=== PATIENT | male | born 1950 | race Caucasian/White ===

== ENCOUNTER 2016-12-26 07:16 | Observation (INO) | payer OTHER ==
[2016-12-26] MEDS ORDERED: NS 1,000 ML IV ONE (07:20)
--- NOTE | 2016-12-26 07:51 | CPEKG ---
Heart Rate: 116 RR Interval: 517 QRSD Interval: 112 QT Interval: 384 QTC Interval: 534 QRS [place]: 0 T Wave [place]: 74 EKG Severity - ABNORMAL ECG - EKG Impression: Atrial flutter EKG Impression: NONSPECIFIC INTRAVENTRICULAR CONDUCTION DELAY EKG Impression: PROBABLE INFERIOR INFARCT, AGE INDETERMINATE Electronically Signed By: Dax Matos 26-Dec-2016 08:41:28
[2016-12-26 08:02] LABS: ADD DIFF? NO; ADD MORPH? NO; ADD SCAN? NO; ATYPICAL LYMPHOCYTE FLAG 0 (0-99); FRAGMENT RBC FLAG 0 (0-99); HEMATOCRIT 47.1 % (40.0-51.0); HEMOGLOBIN 15.2 g/dL (13.7-17.5); LEFT SHIFT FLG 0 (0-99); LIPEMIA HEMOLYSIS FLAG 80 (0-99); MEAN CELL HEMOGLOBIN 27.5 pg (27.9-34.1); MEAN CELL HEMOGLOBIN CONCENTR. 32.3 g/dL (32.4-36.7); MEAN CELL VOLUME 85.2 fL (81.5-99.8); MEAN PLATELET VOLUME 9.4 fL (8.7-11.7); PLATELET CLUMPS FLAG 10 (0-99); PLATELET COUNT 134 10^3/uL (150-400); RED BLOOD CELL COUNT 5.53 10^6/uL (4.40-6.38); RED CELL DISTRIBUTION WIDTH 18.2 % (11.5-15.2)
[2016-12-26] MEDS ORDERED: HEPARIN 10,000 UNIT/10 ML MDV ONE ×2 (08:07→09:17)
[2016-12-26] MEDS ORDERED: LIDOCAINE 1% 30 ML SDV ONE (08:07)
[2016-12-26] MEDS ORDERED: ISOPROTERENOL HCL 0.2 MG/ML 5ML AMP ONE (08:07)
[2016-12-26] MEDS ORDERED: BUPIVACAINE 0.5% 30 ML SDV ONE (08:07)
[2016-12-26 08:12] LABS: APTT 31.4 SEC (23.0-38.0); INR 1.33 (0.83-1.16); PROTIME(PATIENT) 16.5 SEC (12.0-15.0)
[2016-12-26 08:17] LABS: ANION GAP 6 mEq/L (8-16); CALCIUM 8.7 mg/dL (8.5-10.4); CARBON DIOXIDE 32 mEq/l (22-31); CHLORIDE 101 mEq/L (97-110); CREATININE 1.1 mg/dL (0.7-1.3); GLOMERULAR FILTRATION RATE > 60; GLUCOSE 131 mg/dL (70-100); MAGNESIUM 1.8 mg/dL (1.6-2.3); POTASSIUM 3.5 mEq/L (3.5-5.2); SODIUM 139 mEq/L (134-144)
[2016-12-26] MEDS ORDERED: MIDAZOLAM 2 MG/2 ML VIAL ONE (08:30)
[2016-12-26] MEDS ORDERED: fentaNYL 100 MCG/2 ML INJ ONE (08:49)
[2016-12-26] MEDS ORDERED: ROCURONIUM 50 MG/5 ML VIAL ONE ×2 (08:49→10:00)
[2016-12-26] MEDS ORDERED: ONDANSETRON 4 MG/2 ML VIAL ONE ×2 (08:49→11:16)
[2016-12-26] MEDS ORDERED: PROPOFOL/EMULSION 500 MG/50 ML BOTTLE IV ONE ×2 (08:49→09:51)
[2016-12-26] MEDS ORDERED: DEXAMETHASONE 4 MG/ML VIAL ONE (08:49)
[2016-12-26] MEDS ORDERED: PHENYLEPHRINE HCL 100 MCG/ML SYR ONE ×2 (09:16→09:53)
[2016-12-26] MEDS ORDERED: HEPARIN/DEXTROSE 25,000 UNIT/500 ML BAG IV ONE (09:17)
[2016-12-26] MEDS ORDERED: IOPAMIDOL (ISOVUE-300) 50 ML VIAL IV ONE (09:32)
[2016-12-26] MEDS ORDERED: PHENYLEPHRINE 10 MG/ML SDV ONE (09:45)
[2016-12-26] MEDS ORDERED: SUGAMMADEX SODIUM 200 MG/2 ML VIAL IVP ONE ×2 (10:40→10:49)
[2016-12-26] MEDS ORDERED: ONDANSETRON 4 MG/2 ML VIAL IVP PRN (10:54)
[2016-12-26] MEDS ORDERED: ACETAMINOPHEN 325 MG TAB PO PRN (10:54)
[2016-12-26] MEDS ORDERED: OXYCODONE/APAP 5/325 TAB PO PRN (10:54)
[2016-12-26] MEDS ORDERED: NON-FORMULARY NEW DRUG (Eszopiclone [Lunesta] 3 MG) PO PRN (10:56)
[2016-12-26] MEDS ORDERED: METHOCARBAMOL 500 MG TAB PO PRN (10:56)
[2016-12-26] MEDS ORDERED: SIMETHICONE 80 MG TAB CHEW PO PRN (10:56)
[2016-12-26] MEDS ORDERED: METOCLOPRAMIDE 5 MG TAB PO PRN (10:56)
--- NOTE | 2016-12-26 11:20 | CPEKG ---
Heart Rate: 82 RR Interval: 732 P-R Interval: 200 QRSD Interval: 116 QT Interval: 440 QTC Interval: 514 P [place]: 59 QRS [place]: 241 T Wave [place]: 101 EKG Severity - ABNORMAL ECG - EKG Impression: SINUS RHYTHM EKG Impression: LEFT ATRIAL ABNORMALITY EKG Impression: LAD, CONSIDER LEFT ANTERIOR FASCICULAR BLOCK Electronically Signed By: Chloe Parish 26-Dec-2016 12:47:31
[2016-12-26] MEDS ORDERED: OXYCODONE/APAP 5/325 TAB ONE (11:28)
[2016-12-26 11:45] LABS: ANION GAP 6 mEq/L (8-16); CALCIUM 7.4 mg/dL (8.5-10.4); CARBON DIOXIDE 31 mEq/l (22-31); CHLORIDE 103 mEq/L (97-110); CREATININE 1.1 mg/dL (0.7-1.3); GLOMERULAR FILTRATION RATE > 60; GLUCOSE 163 mg/dL (70-100); MAGNESIUM 1.6 mg/dL (1.6-2.3); POTASSIUM 3.4 mEq/L (3.5-5.2); SODIUM 140 mEq/L (134-144)
--- NOTE | 2016-12-26 12:55 | EPPROC ---
Electrophysiology Procedure Note: ELECTROPHYSIOLOGIC STUDY AND CATHETER MEDIATED ABLATION FOR SUBEUSTACHIAN ISTHMUS DEPENDENT COUNTERCLOCKWISE ATRIAL FLUTTER: INDICATION: Recurrent atrial flutter PROCEDURES PERFORMED: 13374-65 EP evaluation with RA/RV/LA pace/record, with arrhythmia induction 29687-69 EP evaluation with RA/RV pace record, insert/reposition catheter, with arrhythmia induction 62181 SVT ablation 65812 3D mapping Fluoroscopy Catheters & Anesthesia: The patient arrived in the Electrophysiology Laboratory in the fasting state. The right clavicular region, right groin, and left groin area were prepped and draped in the usual sterile manner. Anesthesiologist Dr. Richard Cruz administered general anesthesia. Appropriate non-invasive blood pressure, pulse oximetry and end-tidal CO2 monitoring was established. All catheters were placed percutaneously using the modified Seldinger technique , and advanced into position under fluoroscopic guidance. Pt has a >5 yr old IVC filter. 8Fr sheath was placed in right femoral vein and we were able to advance wire to RA through IVC filter without difficulty. Agilis sheath was placed in RA over the wire. One #7 [place] deflectable catheter with 10 pairs of electrodes (Livewire) was placed via the right subclavian vein into the coronary sinus. Heparin was administered to keep ACT > 250 seconds. On arrival to the Electrophysiology Laboratory the patient was in atrial flutter , CL 260 ms. In preparation for ablation of typical atrial flutter, a high-resolution 3D (3 dimensional) Carto electroanatomical map of the sub-Eustachian isthmus and right atrium was obtained during atrial flutter. A #8 [place] deflectable quadrapolar electrode catheter (2mm-5mm-2mm spacing) with 3.5 mm irrigated tip electrode and location sensor for the Bia mapping system was inserted in the long sheath and advanced to the right atrium. Radiofrequency applications were applied between the tricuspid annulus at 0630 o'clock as seen in the LINDA view and the inferior vena cava. Atrial flutter CL gradually increased to 305 ms before termination of atrial flutter. Further RF applications were delivered. This achieved conduction block across the isthmus. Septal to lateral conduction time 205 ms. Bidirectional block was confirmed. Wide double potentials were seen all along the CT isthmus ablation line. Post ablation, a high-resolution electroanatomical map of the sub-Eustachian isthmus was obtained during pacing of the posterolateral coronary sinus. This confirmed conduction block across the sub-Eustachian isthmus. The catheters were removed. Long sheath was changed to short 11Fr sheath. The patient was transferred to the cardiovascular holding area in stable condition. Vascular access sheaths were removed in the holding area. There were no apparent complications. CONCLUSIONS: 1. Cavotricuspid isthmus dependent counterclockwise atrial flutter. 2. Successful catheter mediated ablation of cavotricuspid isthmus achieving bi -directional conduction block across cavotricuspid isthmus. 3. IVC filter in place. Agilis sheath was placed through this IVC filter. 4. No apparent complications. Patient Problems: Problems Problem Status Diagnosed Atrial fibrillation with rapid ventricular response Acute Epistaxis Acute Hypoxia Acute Lung mass Acute Shortness of breath Acute Tachycardia Acute Weakness Acute
[2016-12-26] MEDS ORDERED: ATROPINE SULFATE 1 MG/10 ML SYR ONE (13:11)
[2016-12-26] MEDS ORDERED: Eszopiclone [Lunesta] 3 MG PO PRN (15:58)
[2016-12-26] MEDS ORDERED: MAGNESIUM SULF 1 GM/DEXTROSE 100 ML IV ONE (16:30)
[2016-12-26] MEDS ORDERED: POTASSIUM CL 20 MEQ TAB PO ONE (16:30)
[2016-12-26] MEDS: oxyCODONE IR 5 MG TAB PO PRN ×2 (18:26→18:38)
[2016-12-26] MEDS: WARFARIN SODIUM 5 MG TAB PO SCH (18:26)
[2016-12-26] MEDS ORDERED: NON-FORMULARY NEW DRUG (Ranitidine Hcl [Ranitidine Hcl] 150 MG) PO SCH (21:00)
[2016-12-26] MEDS: SENNOSIDES/DOCUSATE SODIUM TAB PO SCH (22:11)
[2016-12-26] MEDS: SULFAMETHOX/TMP 800/160 MG 1 TAB PO SCH (22:13)
[2016-12-26] MEDS: FAMOTIDINE 20 MG TAB PO SCH (22:13)
[2016-12-26] MEDS: PROMETHAZINE HCL 25 MG TAB PO PRN (22:20)
[2016-12-27] MEDS: oxyCODONE IR 5 MG TAB PO PRN ×5 (00:10→23:44)
[2016-12-27 05:13] LABS: % IMMATURE GRANULYOCYTES 0.3 % (0.0-1.1); ABSOLUTE IMMATURE GRANULOCYTES 0.03 10^3/uL (0.00-0.10); ADD DIFF? NO; ADD MORPH? NO; ADD SCAN? NO; ATYPICAL LYMPHOCYTE FLAG 0 (0-99); FRAGMENT RBC FLAG 0 (0-99); HEMATOCRIT 41.9 % (40.0-51.0); HEMOGLOBIN 13.2 g/dL (13.7-17.5); LEFT SHIFT FLG 0 (0-99); LIPEMIA HEMOLYSIS FLAG 80 (0-99); MEAN CELL HEMOGLOBIN 27.4 pg (27.9-34.1); MEAN CELL HEMOGLOBIN CONCENTR. 31.5 g/dL (32.4-36.7); MEAN CELL VOLUME 86.9 fL (81.5-99.8); MEAN PLATELET VOLUME 10.9 fL (8.7-11.7); PLATELET CLUMPS FLAG 0 (0-99); PLATELET COUNT 138 10^3/uL (150-400); RED BLOOD CELL COUNT 4.82 10^6/uL (4.40-6.38); RED CELL DISTRIBUTION WIDTH 18.6 % (11.5-15.2)
[2016-12-27 05:25] LABS: INR 1.15 (0.83-1.16); PROTIME(PATIENT) 14.7 SEC (12.0-15.0)
[2016-12-27 05:36] LABS: ANION GAP 6 mEq/L (8-16); CALCIUM 8.1 mg/dL (8.5-10.4); CARBON DIOXIDE 34 mEq/l (22-31); CHLORIDE 97 mEq/L (97-110); CREATININE 0.9 mg/dL (0.7-1.3); GLOMERULAR FILTRATION RATE > 60; GLUCOSE 142 mg/dL (70-100); POTASSIUM 3.4 mEq/L (3.5-5.2); SODIUM 137 mEq/L (134-144)
[2016-12-27] MEDS: PROMETHAZINE HCL 25 MG TAB PO PRN ×4 (05:36→23:44)
[2016-12-27 05:43] LABS: CREATINE KINASE-MB FRACTION 1.94 ng/mL (0-3.19); TROPONIN I 0.532 ng/mL (0-0.034)
[2016-12-27] MEDS ORDERED: TESTOSTERONE TD SCH (09:00)
[2016-12-27] MEDS ORDERED: [UNRECOGNIZED DRUG - REMARK] SC SCH (09:00)
--- NOTE | 2016-12-27 09:18 | CPEKG ---
Heart Rate: 84 RR Interval: 714 P-R Interval: 200 QRSD Interval: 114 QT Interval: 408 QTC Interval: 483 P [place]: 94 QRS [place]: 133 T Wave [place]: 106 EKG Severity - ABNORMAL ECG - EKG Impression: SINUS RHYTHM EKG Impression: LEFT ATRIAL ABNORMALITY EKG Impression: NONSPECIFIC INTRAVENTRICULAR CONDUCTION DELAY Electronically Signed By: Chloe Parish 27-Dec-2016 09:54:23
[2016-12-27] MEDS: FUROSEMIDE 40 MG TAB PO SCH (09:39)
[2016-12-27] MEDS: ENOXAPARIN 100 MG/ML SYR SC SCH ×2 (09:40→20:15)
[2016-12-27] MEDS: buPROPion XL 150 MG TAB PO SCH (09:40)
[2016-12-27] MEDS: FOLIC ACID 1 MG TAB PO SCH (09:40)
[2016-12-27] MEDS: MULTIVITAMINS 1 EACH TAB PO SCH (09:40)
[2016-12-27] MEDS: METOLAZONE 5 MG TAB PO SCH (09:40)
[2016-12-27] MEDS: PANTOPRAZOLE SODIUM 40 MG TAB PO SCH (09:40)
[2016-12-27] MEDS: FAMOTIDINE 20 MG TAB PO SCH ×2 (09:40→20:15)
[2016-12-27] MEDS: POTASSIUM CL 20 MEQ/15 ML UDCUP PO SCH (09:40)
--- NOTE | 2016-12-27 09:52 | ECHO ---
[id number] [id number] + + [address] : : [facility] [address] : : [phone] + + Transesophageal Echocardiographic Report + ---------+ :Name: DAVID WEISS LStudy Date: 12/27/2016 09:32 AM : : Hospital Admission Number: [id number] Shaina silver: 213: :: 1950 Gender: Male Height: 72 i n : :Age: 66 yrs Race: WH Weight: 233 lb : :Reason For Study: Eval LV Fx : : BSA: 2.3 met ers2 : :History: Post Ablation : + ---------+ Left Ventricle The left ventricle is normal in size. There is mild to moderate concentric left ventricular hypertrophy. The left ventricular ejection fraction is normal. There is Doppler evidence for diastolic dysfunction. Sinus rhythm. The left ventricular wall motion is normal. Right Ventricle The right ventricle is normal in size and function. Atria The left atrial size is normal. Right atrial size is normal. Mitral Valve The mitral valve is normal in structure and function. There is no evidence of mitral valve prolapse. There is no mitral valve stenosis. There is no mitral regurgitation noted. Tricuspid Valve Normal tricuspid valve. There is trace to mild tricuspid regurgitation. Right ventricular systolic pressure is normal. Aortic Valve There is a mechanical aortic valve. The gradient is normal for this prosthetic aortic valve. The prosthetic aortic valve appears to open well. Pulmonic Valve The pulmonic valve is normal in structure and function. Vessels The aortic root is normal size. Pericardium There is no pericardial effusion. There is a fat pad seen. Conclusion A 2D transesophageal echocardiogram with color flow Doppler was performed. There is mild to moderate concentric left ventricular hypertrophy. The left ventricular ejection fraction is normal. There is Doppler evidence for diastolic dysfunction. Sinus rhythm The left ventricular wall motion is normal. The right ventricle is normal in size and function. The left atrial size is normal. The mitral valve is normal in structure and function. There is trace to mild tricuspid regurgitation. Right ventricular systolic pressure is normal. There is a mechanical aortic valve. The gradient is normal for this prosthetic aortic valve. The prosthetic aortic valve appears to open well. There is a fat pad seen. There is no pericardial effusion. Final Reading Physician: Dax Mtaos MD electronically signed on 12/27/2016 09:50 AM Ordering Physician: Dax Matos Performed By: Samy Workman, CS
[2016-12-27] MEDS ORDERED: PROTOCOL POTASSIUM 1 DOSE MISC PRN (11:13)
[2016-12-27] MEDS: SENNOSIDES/DOCUSATE SODIUM TAB PO SCH ×2 (11:19→20:15)
[2016-12-27] MEDS: PUMP TD SCH (11:20)
[2016-12-27] MEDS: ANDROGEL 1.62% TD SCH (11:20)
[2016-12-27] MEDS ORDERED: POTASSIUM CL 10 MEQ TAB PO ONE (11:39)
--- NOTE | 2016-12-27 14:20 | PDCARPN ---
Cardiology Progress Note Chief Complaint: s/p a.flutter ablation Assessment/Plan: Assessment/plan: The patient has a history of CAD, mechanical AVR, IVC filter, and atrial arrhythmias. He was elective admitted for a flutter ablation which was preformed by Dr. Matos yesterday. It was uncomplicated but he is now complaining of a mild headache and more nausea than normal. He will be kept one additional day for observation. He will continue Coumadin and Lovenox. 12/27/16 14:17 Subjective: He is complaining of more nausea than normal and mild headache. He denies any CP or SOB. Objective: Vital Signs (8 Hrs) Temp Pulse Resp BP Pulse Ox 12/27/16 11:52 36.8 C 84 19 112/75 95 12/27/16 07:52 36.8 C 84 15 111/70 91 L Intake/Output (24 Hrs) 12/26/16 12/27/16 12/28/16 05:59 05:59 05:59 Intake Total 3050 Output Total 1200 600 Balance 1850 -600 Intake: Oral (ml) 1450 IV Intake (ml) 1600 Output: Urine (ml) 1200 600 Urinal 1200 600 Other: Weight 105.7 kg Intake Quantity Yes Sufficient Result Diagrams: 12/27/16 03:22 12/27/16 03:22 Cardiac Labs: Cardiac Lab Results (72 Hrs) 12/27/16 03:22 CK-MB (CK-2) Fraction 1.94 Troponin I 0.532 H - Physical Exam Constitutional: WDWN Cardiovascular: regular rate and rhythm Respiratory: clear to auscultate bilat, no crackles, no wheezes Gastrointestinal: no tenderness, no masses Skin: no edema, other (groin is clean intact without infection) ICD10 Worksheet Patient Problems: Problems Problem Status Diagnosed Atrial fibrillation with rapid ventricular response Acute Epistaxis Acute Hypoxia Acute Lung mass Acute Shortness of breath Acute Tachycardia Acute Weakness Acute
[2016-12-27] MEDS: WARFARIN SODIUM 5 MG TAB PO SCH (15:56)
[2016-12-27 19:10] LABS: POTASSIUM 3.1 mEq/L (3.5-5.2)
[2016-12-27] MEDS: SULFAMETHOX/TMP 800/160 MG 1 TAB PO SCH (20:15)
[2016-12-28] MEDS ORDERED: POTASSIUM CL 10 MEQ TAB PO ONE ×3 (03:08→10:00)
[2016-12-28 06:22] LABS: POTASSIUM 3.3 mEq/L (3.5-5.2)
[2016-12-28] MEDS: oxyCODONE IR 5 MG TAB PO PRN ×2 (10:05→16:52)
[2016-12-28] MEDS: PROMETHAZINE HCL 25 MG TAB PO PRN ×2 (10:05→16:52)
[2016-12-28] MEDS: ENOXAPARIN 100 MG/ML SYR SC SCH (10:06)
[2016-12-28] MEDS: FOLIC ACID 1 MG TAB PO SCH (10:07)
[2016-12-28] MEDS: FAMOTIDINE 20 MG TAB PO SCH (10:07)
[2016-12-28] MEDS: METOLAZONE 5 MG TAB PO SCH (10:07)
[2016-12-28] MEDS: FUROSEMIDE 40 MG TAB PO SCH (10:07)
[2016-12-28] MEDS: POTASSIUM CL 20 MEQ/15 ML UDCUP PO SCH (10:07)
[2016-12-28] MEDS: MULTIVITAMINS 1 EACH TAB PO SCH (10:07)
[2016-12-28] MEDS: PANTOPRAZOLE SODIUM 40 MG TAB PO SCH (10:07)
[2016-12-28] MEDS: buPROPion XL 150 MG TAB PO SCH (10:08)
[2016-12-28] MEDS: ANDROGEL 1.62% TD SCH (10:31)
[2016-12-28] MEDS: PUMP TD SCH (10:31)
[2016-12-28] MEDS ORDERED: MECLIZINE HCL 25 MG TAB PO PRN (10:34)
[2016-12-28 11:37] LABS: % IMMATURE GRANULYOCYTES 0.4 % (0.0-1.1); ABSOLUTE IMMATURE GRANULOCYTES 0.02 10^3/uL (0.00-0.10); ADD DIFF? NO; ADD MORPH? NO; ADD SCAN? NO; ATYPICAL LYMPHOCYTE FLAG 0 (0-99); FRAGMENT RBC FLAG 0 (0-99); HEMATOCRIT 40.6 % (40.0-51.0); HEMOGLOBIN 12.9 g/dL (13.7-17.5); LEFT SHIFT FLG 0 (0-99); LIPEMIA HEMOLYSIS FLAG 80 (0-99); MEAN CELL HEMOGLOBIN 27.9 pg (27.9-34.1); MEAN CELL HEMOGLOBIN CONCENTR. 31.8 g/dL (32.4-36.7); MEAN CELL VOLUME 87.7 fL (81.5-99.8); MEAN PLATELET VOLUME 10.2 fL (8.7-11.7); PLATELET CLUMPS FLAG 0 (0-99); PLATELET COUNT 105 10^3/uL (150-400); RED BLOOD CELL COUNT 4.63 10^6/uL (4.40-6.38); RED CELL DISTRIBUTION WIDTH 19.2 % (11.5-15.2)
[2016-12-28 12:23] VITALS: BP 127/92; RESP 17; TEMP 97.9
[2016-12-28 12:40] LABS: ANION GAP 8 mEq/L (8-16); CALCIUM 9.1 mg/dL (8.5-10.4); CARBON DIOXIDE 34 mEq/l (22-31); CHLORIDE 94 mEq/L (97-110); GLOMERULAR FILTRATION RATE > 60; GLUCOSE 181 mg/dL (70-100); POTASSIUM 3.7 mEq/L (3.5-5.2); SODIUM 136 mEq/L (134-144)
[2016-12-28] MEDS: SENNOSIDES/DOCUSATE SODIUM TAB PO SCH (12:43)
[2016-12-28 15:24] VITALS: PULSE 93; O2SAT 93
--- NOTE | 2016-12-28 15:35 | PDIAF ---
- Diagnosis Diagnosis: atrial flutter Code Status: Full Code - Medication Management Discharge Medications: Medications to Continue on Transfer Folic Acid [Folic Acid 1 MG (*)] 1 mg PO DAILY 08/03/16 [Last Taken 09/23/16] Furosemide [Lasix 40 MG (*)] 40 mg PO DAILY 08/03/16 [Last Taken 12/25/16] Methocarbamol [Robaxin 500 mg (*)] 500 mg PO BID PRN 08/03/16 [Last Taken ] Multivitamins [Multivitamin (*)] 1 each PO DAILY 08/03/16 [Last Taken 09/23/16] Pantoprazole Sodium [Protonix 40mg (*)] 40 mg PO DAILY 08/03/16 [Last Taken ] Promethazine HCl [Phenergan 25mg (*)] 25 mg PO Q6 PRN 08/03/16 [Last Taken Unknown] Sulfamethox/Tmp 800/160 mg [Bactrim DS] 1 tab PO HS 08/03/16 [Last Taken ] Warfarin Sodium [Coumadin 5MG (*)] 5 mg PO MOTUWEFRSA@16 08/03/16 [Last Taken ] Warfarin Sodium [Coumadin 5MG (*)] 7.5 mg PO SUTH@1600 08/03/16 [Last Taken ] buPROPion XL [Wellbutrin 150mg XL] 150 mg PO DAILY 08/03/16 [Last Taken 12/25/16 ] oxyCODONE IR [Oxycodone Ir (*)] 5 - 10 mg PO Q4 PRN 08/03/16 [Last Taken ] Herbals/Supplements -Info Only 1 ea PO DAILY 09/23/16 [Last Taken Unknown] Metoclopramide [Reglan 5 mg (*)] 5 mg PO ACHS PRN 09/23/16 [Last Taken 09/20/16] Ranitidine HCl 150 mg PO BID 09/23/16 [Last Taken 12/25/16] Sennosides/Docusate Sodium [Senokot-S] 1 - 2 tab PO BID #0 tab 09/28/16 [Last Taken 12/24/16] Simethicone [Mylicon] 80 mg PO QID PRN #0 tab.chew 09/28/16 [Last Taken Unknown] Eszopiclone [Lunesta] 3 mg PO HS PRN 12/26/16 [Last Taken Unknown] Metolazone [Zaroxolyn 5MG (*)] 5 mg PO DAILY 12/26/16 [Last Taken Unknown] TESTOSTERONE [Androgel 1.62% pump] 1 monster TD DAILY 12/26/16 [Last Taken Unknown] Enoxaparin [Lovenox 100 MG (*)] 100 mg SQ 1000,2200 #7 syr 12/27/16 [Last Taken Unknown] Metoprolol Tartrate 12.5 mg PO BID #30 tablet 12/28/16 [Last Taken Unknown] Potassium Chloride Po [Potassium Chloride 20 mg/15 ml (*)] 20 meq PO DAILY #0 udcup 12/28/16 [Last Taken Unknown] Discharge Medications: Refer to the Discharge Home Medication list for PRN reason. PICC Care - Routine: N/A - Orders Services needed: Home Care, Registered Nurse, Physical Therapy Home Care Face to Face: I certify that this patient was under my care and that I had the required [id number] encounter meeting the encounter requirements on the discharge day. My findings support the fact that the patient is homebound as defined in CMS Chapter 7 Medicare Benefits Manual 30.1.1, The condition of the patient is such that there exists a normal inability to leave home and consequently, leaving home would require a considerable and taxing effort. Diet Recommendation: cardiac -low fat low salt Diet Texture: Regular Texture Diet - Labs/Radiology PT/INR Date: 01/01/17 - Follow Up Care Current Providers and Referrals: VITA SARGENT [Primary Care Provider] -
[2016-12-28] MEDS ORDERED: WARFARIN SODIUM 5 MG TAB PO SCH (16:00)
--- NOTE | 2016-12-28 18:53 | GDS ---
[f rep st] DISCHARGE SUMMARY DISCHARGE DIAGNOSES: 1. Atrial flutter, status post ablation. 2. History of bicuspid aortic valve, status post [place] mechanical aortic valve replacement. 3. Chronic abdominal discomfort. 4. Chronic headache. HOSPITAL COURSE: For detailed H and P, please see prior dictation. The patient is a 66-year-old mal e with a complicated past medical history. For detailed history, please see prior office notes. Alvinaerika zuñiga, he has a history of a bicuspid aortic valve, status post [place] mechanical AVR with a root gr aft in 2001. 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 Most recently, he has b een diagnosed with paroxysmal atrial flutter and atrial fibrillation. This is associated with fatigu e, shortness of breath, and dizziness. He was having predominantly atrial flutter and therefore, the decision was made to proceed with an EP study and ablation. This was performed by Dr. Dax Matos on December 26, 2016. The procedure was uncomplicated. Unfortunately, he had a prolonged hospitalizati on secondary to complaints of chronic nausea and dizziness. He was monitored on telemetry, remained in normal sinus rhythm with frequent ectopy. He did note that his heart felt better, but he felt wel l worse in other ways. He had slightly worse dizziness and nausea. He did not have any evidence of infection with a normal white blood cell count and remained afebrile throughout his hospitalization. His vitals looked great with a blood pressure of 127/92 the day of discharge. His heart rate was ty pically running in the 70s to 90s. He does have a history of chronic oxygen use, but his oxygen satu rations were remaining greater than 90% on 3 L of oxygen. He did work with Physical Therapy and ambu lated in the halls without a walker. He did need to stop multiple times because he complained of diz ziness. It was recommended he use a walker, which he was not interested in. STUDIES: His echocardiogram revealed mild to moderate left ventricular hypertrophy with normal left ventricular ejection fraction. There was diastolic dysfunction and a mechanical aortic valve was see n. The gradient was normal for the valve. His EKG postablation revealed normal sinus rhythm with no nspecific ST-T wave changes. PHYSICAL EXAMINATION: GENERAL: Patient appears in no acute distress. VITALS: Blood pressure 127/9 2, heart rate 88, oxygen saturation 96% on 3 L, afebrile. LUNGS: Clear to auscultation. No wheezes , rhonchi, or crackles are auscultated. CARDIAC: There is a click consistent with aortic valve with a systolic murmur present. ABDOMEN: Soft, nontender, nondistended. EXTREMITIES: Palpable pulses bilaterally without any evidence of edema. Access for his ablation was obtained through the right gr oin and right axillary region. There is no evidence of hematoma or infection at either site. DISCHARGE MEDICATIONS: His Coumadin has been resumed, but he will need to remain on Lovenox 100 mg b .i.d. until his INR is therapeutic between 2.5 and 3.5. To also continue potassium 20 mEq daily, met oprolol 12.5 mg b.i.d., herbal supplement daily, oxycodone IR 5-10 mg q.4 hours p.r.n., Wellbutrin 1 50 mg daily, Coumadin 5 mg daily with 7.5 mg on Sunday and , AndroGel transdermal daily, Bact rim DS 1 tab at bedtime, Mylicon 80 mg q.i.d. p.r.n., Senokot 1-2 tabs b.i.d., Phenergan 25 mg q.6 p. r.n., Protonix 40 mg daily, multivitamin daily, Zaroxolyn 5 mg daily, Reglan 5 mg p.r.n., Robaxin 500 mg b.i.d., Lasix 40 mg daily, folic acid 1 mg daily, ranitidine 150 mg b.i.d., Lunesta 3 mg at bedti me. PLAN: The patient is status post atrial flutter ablation. His access sites are clean and dry withou t any evidence of infection. He should keep them clean and dry for the next 7 days. He is not to do any physical activity for the next 7 days as well. He has been complaining of nausea and dizziness for the past 18 months to 2 years. He is currently in sinus rhythm with stable vital signs. A cause for his symptoms has not been identified. He will continue followup with his specialist. He has be en ordered home physical therapy and nursing. He is aware that he is to remain on Lovenox until his INR is therapeutic between 2.5 and 3.5. He will have an INR drawn on January 01. He will also fol low up with Dr. Dax Matos as scheduled in 1 month. Greater than 30 minutes was spent coordinating the patient's care today. /[id number]/MODL
--- NOTE | 2017-01-09 08:34 | ECHO ---
[id number] [id number] + + [address] : : [place] [address] : : [phone] + + Transesophageal Echocardiographic Report + + :Name: DAVID WEISS LStudy Date: 12/26/2016 08:51 AM : : Hospital Admission Number: [id number] Shaina silver: ANGELA lab: :: 1950 Gender: Male : :Age: 66 yrs Race: WH : :Reason For Study: R/O Thrombus : :History: Ao Root Replacement, AVR : + + MMode/2D Measurements \T\ Calculations IVSd: 1.2 cm LVIDd: 5.2 cm FS: 36.3 % Ao root diam: 2.7 cm LVPWd: 1.3 cm LVIDs: 3.3 cm EDV(Teich): 128.7 ml ACS: 1.4 cm ESV(Teich): 44.2 ml EF(Teich): 65.7 % LVOT diam: 2.2 cm LVOT area: 3.8 cm2 Normal Measurement Values: + + :LVIDd (3.5-5.7cm) IVSd (0.6-1.1cm) LVPWd (0.6-1.1cm) Aortic Root (2.0-3.7cm)Left Atrium (1.5-4.0cm): :LV Vol(d) (76-115ml) LV Vol(s) (29-48ml) Ejec Fraction (50-65%)PV Justin (0.6- 1.2m/s) TV Justin (0.4-1.0m/s) : :MV E Justin (0.8-1.0m/s)MV A Justin (0.3-1.0m/s)LVOT Justin (0.7-1.2m/s) Asc Ao Justin ( 0.9-1.8m/s) : + + Doppler Measurements \T\ Calculations MV E max justin: Ao V2 max: LV V1 max: SV(LVOT): 81.9 cm/sec 229.4 cm/sec 56.8 cm/sec 51.5 ml MV A max justin: Ao max P.0 mmHg LV V1 max P.6 cm/sec Ao mean P.3 mmHg MV E/A: 1.2 18.0 mmHg LV V1 mean PG: Ao V2 mean: 0.82 mmHg 192.2 cm/sec LV V1 mean: Ao V2 VTI: 54.4 cm 41.8 cm/sec SPIKE(I,D): 0.95 cm2 LV V1 VTI: 13.6 cm SPIKE(V,D): 0.94 cm2 PA V2 max: TR max justin: 88.2 cm/sec 211.7 cm/sec PA max P.1 mmHg TR max P.9 mmHg RAP systole: 5.0 mmHg RVSP(TR): 22.9 mmHg LV The left ventricle is normal in size. Ejection Fraction = 50-55%. RV The right ventricle is grossly normal size. Atria No thrombus is detected in the left atrial appendage. The interatrial septum is intact with no evidence for an atrial septal defect. Injection of contrast documented no interatrial shunt. Mitral Valve The mitral valve is normal in structure and function. There is mild mitral regurgitation. Aortic Valve There is no aortic insufficiency. There is a mechanical aortic valve. The prosthetic aortic valve is well-seated. Tricuspid Valve The tricuspid valve is normal in structure and function. There is mild tricuspid regurgitation. Pericardium There is no pericardial effusion. Conclusion A 2D transesophageal echocardiogram with color flow Doppler was performed. Ejection Fraction = 50-55%. No thrombus is detected in the left atrial appendage. Injection of contrast documented no interatrial shunt. The interatrial septum is intact with no evidence for an atrial septal defect. There is mild mitral regurgitation. There is a mechanical aortic valve. The prosthetic aortic valve is well-seated. There is mild tricuspid regurgitation. Final Reading Physician: Dax Matos MD electronically signed on 01/09/2017 08:32 AM Ordering Physician: Dax Matos Performed By: Dax Matos MD
== END 2016-12-28 17:08 | disposition home health service (06) ==
LOC: FCATH 07:16 → F2W 10:54
PROVIDERS: ADMIT Internal Medicine Cardiovascular Disease; ATTEND Internal Medicine Cardiovascular Disease
PROC: 5A1223Z Performance of Cardiac Pacing, Continuous (ICD-10-PCS; principal; 2016-12-26)
PROC: 4A023FZ Measurement of Cardiac Rhythm, Percutaneous Approach (ICD-10-PCS; principal; 2016-12-26)
PROC: B246ZZ4 Ultrasonography of Right and Left Heart, Transesophageal (ICD-10-PCS; principal; 2016-12-26)
PROC: 02563ZZ Destruction of Right Atrium, Percutaneous Approach (ICD-10-PCS; principal; 2016-12-26)
PROC: 02K83ZZ Map Conduction Mechanism, Percutaneous Approach (ICD-10-PCS; principal; 2016-12-26)
DX: I48.4 Atypical atrial flutter (principal); I48.0 Paroxysmal atrial fibrillation; I25.10 Atherosclerotic heart disease of native coronary artery without angina pectoris; Q23.1 Congenital insufficiency of aortic valve; R51 Headache; Z95.2 Presence of prosthetic heart valve; Z79.01 Long term (current) use of anticoagulants
CPT/HCPCS: 93005; 93306; 93613; 93621; 93653; 97116; 97163; C1730; C1732; C1766; G0378; G8978; G8979; G8980; J1100; J1644; J1650; J2250; J2370; J2405; J2704; J3010; J3475; Q9967; J0461

== ENCOUNTER 2017-02-07 15:20 | Emergency (ER) | payer OTHER ==
[2017-02-07 15:37] VITALS: TEMP 98.2
--- NOTE | 2017-02-07 15:42 | CPEKG ---
Heart Rate: 87 RR Interval: 690 P-R Interval: 168 QRSD Interval: 96 QT Interval: 376 QTC Interval: 453 P [place]: 86 QRS [place]: 24 T Wave [place]: 87 EKG Severity - ABNORMAL ECG - EKG Impression: SINUS RHYTHM EKG Impression: MULTIPLE VENTRICULAR PREMATURE COMPLEXES EKG Impression: LEFT ATRIAL ABNORMALITY EKG Impression: Similar to previous Electronically Signed By: Manuel Culp 07-Feb-2017 15:52:42
--- NOTE | 2017-02-07 15:48 | UCPHY ---
H & P Patient Type: Established Chief Complaint Nursing Narrative: states had hr of 55-60 at home, feels weak, denies cp or sob Time Seen by Provider: 02/07/17 15:38 HPI/ROS: CHIEF COMPLAINT: Fatigue HISTORY OF PRESENT ILLNESS: The patient is a 66-year-old man who comes to the Urgent Care complaining of fatigue. He is requesting to have his potassium checked. He states that he is on a non potassium-sparing diuretic. He states that he was feeling better than ever last week and "over did it" and so he has been feeling tired for the last few days. He has not had a fever or cough. He has not had any chest pain or shortness of breath. No abdominal pain. 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 He was diagnosed recently with atrial flutter/fibrillation and had an ablation in November of this year. The procedure was successful a however he still has occasional atrial fibrillation. He had a prolonged hospitalization due to chronic nausea and dizziness. His vitals remained stable. He was discharged on oxygen and physical therapy and he walks with a walker. This is remained his baseline he states however that last week he felt unusually well and was very active. Today he checked his heart rate and it was down to 60 which is unusual for him. It did not feel irregular. Currently is at 80. He states that this does not seem to correlate with his feelings of fatigue. REVIEW OF SYSTEMS: Constitutional: General fatigue denies: chills, fever, recent illness, recent injury EENTM: denies: blurred vision, double vision, nose congestion Respiratory: denies: cough, shortness of breath Cardiac: denies: chest pain, irregular heart rate, lightheadedness, palpitations Gastrointestinal/Abdominal: denies: abdominal pain, diarrhea, nausea, vomiting, blood streaked stools Genitourinary: denies: dysuria, frequency, hematuria, pain Musculoskeletal: denies: joint pain, muscle pain Skin: denies: lesions, rash, jaundice, bruising Neurological: denies: headache, numbness, paresthesia, tingling, dizziness, weakness Hematologic/Lymphatic: denies: blood clots, easy bleeding, easy bruising Immunologic/allergic: denies: HIV/AIDS, transplant EXAM: GENERAL: Well-appearing, well-nourished and in no acute distress. HEAD: Atraumatic, normocephalic. EYES: Pupils equal round and reactive to light, extraocular movements intact, sclera anicteric, conjunctiva are normal. ENT: TMs normal, nares patent, oropharynx clear without exudates. Moist mucous membranes. NECK: Normal range of motion, supple without lymphadenopathy or JVD. LUNGS: Breath sounds clear to auscultation bilaterally and equal. No wheezes rales or rhonchi. HEART: Regular rate and rhythm. ABDOMEN: Soft, nontender, normoactive bowel sounds. No guarding, no rebound. No masses appreciated. BACK: No CVA tenderness, no spinal tenderness, step-offs or deformities EXTREMITIES: Normal range of motion, no pitting or edema. No clubbing or cyanosis. NEUROLOGICAL: Cranial nerves II through XII grossly intact. Normal speech, normal gait. 5/5 strength, normal movement in all extremities, normal sensation PSYCH: Normal mood, normal affect. SKIN: Warm, dry, normal turgor, no visible rashes or lesions. Source: Patient Exam Limitations: No limitations - Personal History Tetanus Vaccine Date: ALLERGY - Medical/Surgical History Hx Asthma: No Hx Chronic Respiratory Disease: No Hx Diabetes: No Hx Cardiac Disease: Yes Hx Renal Disease: No Hx Cirrhosis: No Hx Alcoholism: No Hx HIV/AIDS: No Hx Splenectomy or Spleen Trauma: No Other PMH: a fib/flutter, aortic valve replacement and aortic root graft, aortic dissection and grafting, cardiac ablation, chronic dizziness and nausea. 3 L of oxygen at baseline - Family History Significant Family History: Hypertension - Social History Smoking Status: Never smoked Alcohol Use: Sober Drug Use: None Constitutional: Initial Vital Signs Temperature (C) 36.8 C 02/07/17 15:35 Heart Rate 89 02/07/17 15:35 Respiratory Rate 15 02/07/17 15:35 Blood Pressure 115/78 02/07/17 15:35 O2 Sat (%) 94 02/07/17 15:35 O2 Delivery Mode Nasal Cannula O2 (L/minute) 2 Allergies/Adverse Reactions: Tetanus Vaccines and Toxoid [Tetanus] Allergy (Intermediate, Verified 10/29/16 15:22) zolpidem tartrate [From Ambien] Allergy (Intermediate, Verified 10/29/16 15:22) Home Medications: Medication Instructions Recorded Folic Acid [Folic Acid 1 MG (*)] 1 mg PO DAILY 08/03/16 Furosemide [Lasix 40 MG (*)] 40 mg PO DAILY 08/03/16 Multivitamins [Multivitamin (*)] 1 each PO DAILY 08/03/16 Pantoprazole Sodium [Protonix 40mg 40 mg PO DAILY 08/03/16 (*)] Promethazine HCl [Phenergan 25mg 25 mg PO Q6 PRN 08/03/16 (*)] Sulfamethox/Tmp 800/160 mg 1 tab PO HS 08/03/16 [Bactrim DS] Warfarin Sodium [Coumadin 5MG (*)] 5 mg PO MOTUWEFRSA@16 08/03/16 Warfarin Sodium [Coumadin 5MG (*)] 7.5 mg PO SUTH@1600 08/03/16 buPROPion XL [Wellbutrin 150mg XL] 150 mg PO DAILY 08/03/16 oxyCODONE IR [Oxycodone Ir (*)] 5 - 10 mg PO Q4 PRN 08/03/16 Metoclopramide [Reglan 5 mg (*)] 5 mg PO ACHS PRN 09/23/16 Ranitidine HCl 150 mg PO BID 09/23/16 Eszopiclone [Lunesta] 3 mg PO HS PRN 12/26/16 Metolazone [Zaroxolyn 5MG (*)] 5 mg PO DAILY 12/26/16 TESTOSTERONE [Androgel 1.62% pump] 1 monster TD DAILY 12/26/16 Metoprolol Tartrate 12.5 mg PO BID #30 tablet 12/28/16 Potassium Chloride 20 meq PO DAILY #30 tablet.er 12/28/16 Medical Decision Making - Diagnostics EKG Interpretation: An EKG obtained and was read and documented in trace view. Please see trace view for full reading and report. Sinus rhythm, no acute ischemic changes, PVCs , slight. Depression in lead [address] elevation in anterior leads, unchanged from previous ED Course/Re-evaluation: Patient is here primarily to get his potassium checked. I will also hydrate him and observed. He has no acute complaints currently. His vital signs are stable. 4:30 p.m. the patient is feeling much better with IV fluids. His electrolytes are reassuring. This was his primary desire was to have his electrolytes checked. He is otherwise asymptomatic. His heart rate is stayed in the 80s throughout his entire stay. He denies having any chest pain or shortness of breath. He declines further workup or observation. He is eager to go home. He feels that his fatigue is most likely due to over doing it last week. Differential Diagnosis: Partial list of the Differential diagnosis considered include but were not limited to; bradycardia, electrolyte abnormality, dehydration and although unlikely based on the history and physical exam, I also considered fever, infection, bacteremia, pneumonia, arrhythmia, acute coronary disease. I discussed these differential diagnoses and the plan with the patient as well as the usual and expected course. The patient understands that the diagnosis is provisional and that in medicine we are not always correct and that further workup is often warranted. Usual and customary warnings were given. All of the patient's questions were answered. The patient was instructed to return to the emergency department should the symptoms at all worsen or return, otherwise to followup with the physician as we discussed. - Data Points Laboratory Results: Laboratory Results 02/07/17 15:55 02/07/17 15:55 02/07/17 02/07/17 15:55 15:55 WBC 4.36 10^3/uL 10^3/uL (3.80-9.50) RBC 4.67 10^6/uL 10^6/uL (4.40-6.38) Hgb 14.3 g/dL g/dL (13.7-17.5) Hct 44.4 % % (40.0-51.0) MCV 95.1 fL fL (81.5-99.8) MCH 30.6 pg pg (27.9-34.1) MCHC 32.2 g/dL L g/dL (32.4-36.7) RDW 20.3 % H % (11.5-15.2) Plt Count 127 10^3/uL L 10^3/uL (150-400) MPV 9.6 fL fL (8.7-11.7) Neut % (Auto) 73.5 % % (39.3-74.2) Lymph % (Auto) 15.1 % % (15.0-45.0) [place] % (Auto) 8.9 % % (4.5-13.0) Eos % (Auto) 1.8 % % (0.6-7.6) Baso % (Auto) 0.5 % % (0.3-1.7) Nucleat RBC Rel Count 0.0 % % (0.0-0.2) Absolute Neuts (auto) 3.20 10^3/uL 10^3/uL (1.70-6.50) Absolute Lymphs (auto) 0.66 10^3/uL L 10^3/uL (1.00-3.00) Absolute Monos (auto) 0.39 10^3/uL 10^3/uL (0.30-0.80) Absolute Eos (auto) 0.08 10^3/uL 10^3/uL (0.03-0.40) Absolute Basos (auto) 0.02 10^3/uL 10^3/uL (0.02-0.10) Absolute Nucleated RBC 0.00 10^3/uL 10^3/uL (0-0.01) Immature Gran % 0.2 % % (0.0-1.1) Immature Gran # 0.01 10^3/uL 10^3/uL (0.00-0.10) RBC/WBC/PLT Morphology NORMAL (NORMAL) Platelet Estimate ADEQUATE (ADEQ) Sodium 139 mEq/L mEq/L (134-144) Potassium 4.0 mEq/L mEq/L (3.5-5.2) Chloride 101 mEq/L mEq/L (97-110) Carbon Dioxide 28 mEq/l mEq/l (22-31) Anion Gap 10 mEq/L mEq/L (8-16) BUN 18 mg/dL mg/dL (7-23) Creatinine 0.9 mg/dL mg/dL (0.7-1.3) Estimated GFR > 60 Glucose 164 mg/dL H mg/dL (70-100) Calcium 8.5 mg/dL mg/dL (8.5-10.4) Medications Given: Discontinued Medications Sodium Chloride (Ns) 1,000 mls @ 0 mls/hr IV ONCE ONE PRN Reason: Wide Open Stop: 02/07/17 15:50 Last Admin: 02/07/17 16:00 Dose: 1,000 mls Departure - Departure Disposition: Home, Routine, Self-Care Clinical Impression: Fatigue Qualifiers: Fatigue type: unspecified Qualified Code(s): R53.83 - Other fatigue Condition: Fair Referrals: VITA SARGENT [Primary Care Provider] - As per Instructions - PQRS PQRS Measurement: 134: Depression screening and followup, PRIME MD-PHQ2 (12 years and older) Over the last 2 weeks, how often have you been bothered by any of the following problems? 1. Feeling down, depressed, or hopeless? 2. Little interest or pleasure in doing things? Patient answered no to both 1 and 2 130: Documentation of medications. Reviewed all patient medications, doses, route and frequency. 226: Do you smoke? No. 47: 65 and older: Advanced care planning. Patient designates surrogate decision maker as spouse . Patient has advanced directive. 51: 18 years old and older with diagnosis of COPD, spirometry performance. Spirometry not performed; equipment not available. 52: 18 years old and older with COPD and symptoms of COPD or FEV1<60% predicted prescribed a B Agonist. Not applicable
[2017-02-07] MEDS ORDERED: NS 1,000 ML IV ONE (15:49)
[2017-02-07 16:04] LABS: % IMMATURE GRANULYOCYTES 0.2 % (0.0-1.1); ABSOLUTE IMMATURE GRANULOCYTES 0.01 10^3/uL (0.00-0.10); ADD DIFF? NO; ADD MORPH? YES; ADD SCAN? NO; ATYPICAL LYMPHOCYTE FLAG 0 (0-99); FRAGMENT RBC FLAG 0 (0-99); HEMATOCRIT 44.4 % (40.0-51.0); HEMOGLOBIN 14.3 g/dL (13.7-17.5); LEFT SHIFT FLG 0 (0-99); LIPEMIA HEMOLYSIS FLAG 80 (0-99); MEAN CELL HEMOGLOBIN 30.6 pg (27.9-34.1); MEAN CELL HEMOGLOBIN CONCENTR. 32.2 g/dL (32.4-36.7); MEAN CELL VOLUME 95.1 fL (81.5-99.8); MEAN PLATELET VOLUME 9.6 fL (8.7-11.7); PLATELET CLUMPS FLAG 10 (0-99); PLATELET COUNT 127 10^3/uL (150-400); RED BLOOD CELL COUNT 4.67 10^6/uL (4.40-6.38); RED CELL DISTRIBUTION WIDTH 20.3 % (11.5-15.2)
[2017-02-07 16:17] LABS: ANION GAP 10 mEq/L (8-16); CALCIUM 8.5 mg/dL (8.5-10.4); CARBON DIOXIDE 28 mEq/l (22-31); CHLORIDE 101 mEq/L (97-110); CREATININE 0.9 mg/dL (0.7-1.3); GLOMERULAR FILTRATION RATE > 60; GLUCOSE 164 mg/dL (70-100); SODIUM 139 mEq/L (134-144)
[2017-02-07 16:19] LABS: PLATELET ESTIMATE ADEQUATE (ADEQ)
[2017-02-07 16:54] VITALS: BP 117/74; PULSE 82; RESP 14; O2SAT 96
== END 2017-02-07 16:51 | disposition home or self-care (01) ==
LOC: CED 15:20
DX: R53.83 Other fatigue (principal); I48.91 Unspecified atrial fibrillation; I71.00 Dissection of unspecified site of aorta; Z95.4 Presence of other heart-valve replacement
CPT/HCPCS: 93005; G0463; 80048-PO; 85025-PO; 93010-PO; 99214-PO

== ENCOUNTER 2017-02-08 17:39 | Observation (INO) | payer OTHER ==
--- NOTE | 2017-02-08 18:08 | EDPHY ---
H & P Time Seen by Provider: 02/08/17 18:05 HPI/ROS: CHIEF COMPLAINT: Irregular heart rate HISTORY OF PRESENT ILLNESS: This patient is a 66 year old male with extensive cardiac history including atrial fibrillation who presents to the Emergency Department complaining of intermittent irregular heart rate over the past few days. He describes episodes of bradycardia as low as 30bpm and tachycardia above 110bpm. He also describes intermittent hypotension. He describes associated fatigue and dizziness at the time of each episode. He was seen at [facility] yesterday by Dr. Culp for the same complaint and was discharged home in good condition at that time. He was taken off of trazodone yesterday; he has otherwise maintained his normal cardiac medication regimen. He is anticoagulated on Coumadin. REVIEW OF SYSTEMS: Constitutional: No fever, no chills Eyes: No visual changes ENT: No sore throat Respiratory: No cough, no shortness of breath Cardiac: +irregular heart rate, +hypotension, no chest pain Gastrointestinal: No nausea, no vomiting, no abdominal pain Genitourinary: No hematuria, no dysuria Musculoskeletal: No leg pain or swelling Skin: No rash Neurological: No headache, no numbness, no weakness Psychiatric: No depression Past Medical/Surgical History: Prior medical records reviewed, including visit to [facility] yesterday 02/07/17. Atrial fibrillation/flutter. Aortic valve replacement and aortic root graft. Aortic dissection and grafting. Cardiac ablation. IVC filter in place. Chronic dizziness. 3L O2 at baseline. Followed by Dr. Matos, cardiology. Social History: Non-smoker. Smoking Status: Never smoked Physical Exam: General Appearance: Alert, no distress Eyes: Pupils equal and round, no conjunctival pallor or injection ENT, Mouth: Mucous membranes moist Neck: Normal inspection Respiratory: Rales at the left base, O2 saturation on 2L is 94% Cardiovascular: Regular rate and rhythm Gastrointestinal: Abdomen is soft and non- tender Neurological: A&O, nonfocal, normal gait Skin: Warm and dry, no rash Extremities: Nontender, no pedal edema Psychiatric: Mood and affect normal Constitutional: Initial Vital Signs Temperature (C) 36.6 C 02/08/17 17:49 Heart Rate 42 L 02/08/17 17:49 Respiratory Rate 16 02/08/17 17:49 Blood Pressure 107/51 L 02/08/17 17:49 O2 Sat (%) 87 L 02/08/17 17:49 O2 Delivery Mode Nasal Cannula O2 (L/minute) 2 Allergies/Adverse Reactions: Tetanus Vaccines and Toxoid [Tetanus] Allergy (Intermediate, Verified 10/29/16 15:22) trazodone Allergy (Intermediate, Verified 02/08/17 20:19) Other-Enter Comments zolpidem tartrate [From Ambien] Allergy (Intermediate, Verified 02/08/17 20:19) Other-Enter Comments Home Medications: Medication Instructions Recorded Folic Acid [Folic Acid 1 MG (*)] 1 mg PO DAILY 08/03/16 Furosemide [Lasix 40 MG (*)] 40 mg PO DAILY 08/03/16 Multivitamins [Multivitamin (*)] 1 each PO DAILY 08/03/16 Pantoprazole Sodium [Protonix 40mg 40 mg PO DAILY 08/03/16 (*)] Promethazine HCl [Phenergan 25mg 25 mg PO Q6 PRN 08/03/16 (*)] Sulfamethox/Tmp 800/160 mg 1 tab PO HS 08/03/16 [Bactrim DS] buPROPion XL [Wellbutrin 150mg XL] 150 mg PO DAILY 08/03/16 oxyCODONE IR [Oxycodone Ir (*)] 5 - 10 mg PO Q4 PRN 08/03/16 Metoclopramide [Reglan 5 mg (*)] 5 mg PO ACHS PRN 09/23/16 Ranitidine HCl 150 mg PO BID 09/23/16 Eszopiclone [Lunesta] 3 mg PO HS PRN 12/26/16 Metolazone [Zaroxolyn 5MG (*)] 5 mg PO DAILY 12/26/16 TESTOSTERONE [Androgel 1.62% pump] 1 monster TD DAILY 12/26/16 Potassium Chloride 20 meq PO DAILY #30 tablet.er 12/28/16 Methocarbamol [Robaxin 500 mg (*)] 1,000 mg PO BID PRN 02/08/17 Enoxaparin [Lovenox 100 MG (*)] 100 mg SC BID #3 syr 02/09/17 Sotalol HCl [Betapace 80 MG (*)] 40 mg PO BID #60 tab 02/09/17 Warfarin Sodium [Coumadin 5MG (*)] 5 mg PO MOWEFRSA@16 #30 tab 02/09/17 Warfarin Sodium [Coumadin 7.5MG 7.5 mg PO KORI@1600 #30 tab 02/09/17 (*)] Medical Decision Making - Diagnostics EKG Interpretation: EKG interpreted by me reveals sinus rhythm, rate 84; ventricular bigeminy; left atrial abnormality; left axis deviation; nonspecific T abnormalities in the lateral leads. ED Course/Re-evaluation: I reviewed the property assessment monitor; no episodes of bradycardia. Pt feels anxious about going home. Will consult with cardiology. 1905: Consultation with Dr. Vincent Rosas who has visited the patient at bedside and recommends admission. 1931: Consultation with Dr. Dorinda Cordoba, hospitalist, who accepts admission. Differential Diagnosis: Differential diagnosis includes though it is not limited to hypotension, ventricular dysrhythmia, pulmonary embolism, aortic dissection, pericarditis, acute coronary syndrome. - Data Points Laboratory Results: Laboratory Results 02/08/17 19:00 02/08/17 19:00 Medications Given: Discontinued Medications Bupropion HCl (Wellbutrin Xl) 150 mg PO DAILY [facility] Stop: 08/08/17 08:59 Last Admin: 02/09/17 11:27 Dose: 150 mg Enoxaparin Sodium (Lovenox) 100 mg SC BID HSANEL Stop: 08/08/17 08:59 Last Admin: 02/09/17 11:33 Dose: 100 mg Famotidine (Pepcid) 20 mg PO BID SHANEL Stop: 08/08/17 08:59 Last Admin: 02/09/17 11:33 Dose: 20 mg Folic Acid (Folic Acid) 1 mg PO DAILY [facility]AN[facility] Stop: 08/08/17 08:59 Last Admin: 02/09/17 11:27 Dose: 1 mg Methocarbamol (Robaxin) 1,000 mg PO BID PRN PRN Reason: Spasms Stop: 08/07/17 23:20 Last Admin: 02/09/17 11:29 Dose: 1,000 mg Metoprolol Tartrate (Lopressor) 12.5 mg PO BID SHANEL Stop: 08/08/17 11:29 Last Admin: 02/09/17 11:27 Dose: 12.5 mg Miscellaneous Medication (Testosterone [Androgel 1.62% Pump]) 1 mosnter TD DAILY SHANEL Stop: 08/08/17 08:59 Last Admin: 02/09/17 11:33 Dose: Not Given Multivitamins (Tab-A-Liang) 1 each PO DAILY [facility] Stop: 08/08/17 08:59 Last Admin: 02/09/17 11:27 Dose: 1 each Pantoprazole Sodium (Protonix) 40 mg PO DAILY [facility] Stop: 08/08/17 08:59 Last Admin: 02/09/17 11:33 Dose: 40 mg Potassium Chloride (Klor-Con) 20 meq PO DAILY SHAN[facility] Stop: 08/08/17 08:59 Last Admin: 02/09/17 11:33 Dose: 20 meq Temazepam (Restoril) 15 mg PO HS PRN PRN Reason: Sleep/Insomnia Stop: 08/08/17 00:16 Last Admin: 02/09/17 00:40 Dose: 15 mg Warfarin Sodium (Coumadin) 5 mg PO MOTUWEFRSA@16 [facility] Stop: 08/08/17 15:59 Last Admin: 02/09/17 16:57 Dose: 5 mg Warfarin Sodium (Coumadin) 2.5 mg PO ONCE ONE Stop: 02/09/17 16:39 Last Admin: 02/09/17 16:57 Dose: 2.5 mg Departure - Departure Disposition: [facility] Inpatient Acute Clinical Impression: Symptomatic bradycardia Condition: Good Report Scribed for: Sylvia Helton Report Scribed by: Adilene Ahumada Date of Report: 02/08/17 Time of Report: 18:07 Physician Review and Approval Statement: 02/08/17 18:07 Portions of this note were transcribed by a medical appointment scheduler. I personally performed a history, physical exam, medical decision making, and confirmed accuracy of information the transcribed note.
--- NOTE | 2017-02-08 18:18 | CPEKG ---
Heart Rate: 84 RR Interval: 714 P-R Interval: 164 QRSD Interval: 96 QT Interval: 392 QTC Interval: 464 P [place]: 69 QRS [place]: -53 T Wave [place]: 91 EKG Severity - ABNORMAL ECG - EKG Impression: SINUS RHYTHM EKG Impression: VENTRICULAR BIGEMINY EKG Impression: LEFT ATRIAL ABNORMALITY EKG Impression: LEFT AXIS DEVIATION EKG Impression: NONSPECIFIC T ABNORMALITIES, LATERAL LEADS Electronically Signed By: Darci Jaffe 08-Feb-2017 20:06:27
[2017-02-08 19:09] LABS: % IMMATURE GRANULYOCYTES 0.2 % (0.0-1.1); ABSOLUTE IMMATURE GRANULOCYTES 0.01 10^3/uL (0.00-0.10); ADD DIFF? NO; ADD MORPH? NO; ADD SCAN? NO; ATYPICAL LYMPHOCYTE FLAG 0 (0-99); FRAGMENT RBC FLAG 0 (0-99); HEMATOCRIT 44.9 % (40.0-51.0); HEMOGLOBIN 14.3 g/dL (13.7-17.5); LEFT SHIFT FLG 0 (0-99); LIPEMIA HEMOLYSIS FLAG 80 (0-99); MEAN CELL HEMOGLOBIN 30.6 pg (27.9-34.1); MEAN CELL HEMOGLOBIN CONCENTR. 31.8 g/dL (32.4-36.7); MEAN CELL VOLUME 95.9 fL (81.5-99.8); MEAN PLATELET VOLUME 10.3 fL (8.7-11.7); PLATELET CLUMPS FLAG 0 (0-99); PLATELET COUNT 131 10^3/uL (150-400); RED BLOOD CELL COUNT 4.68 10^6/uL (4.40-6.38); RED CELL DISTRIBUTION WIDTH 19.9 % (11.5-15.2)
[2017-02-08 19:23] LABS: ANION GAP 9 mEq/L (8-16); CALCIUM 8.8 mg/dL (8.5-10.4); CARBON DIOXIDE 29 mEq/l (22-31); CHLORIDE 103 mEq/L (97-110); CREATININE 0.9 mg/dL (0.7-1.3); GLOMERULAR FILTRATION RATE > 60; GLUCOSE 99 mg/dL (70-100); POTASSIUM 4.2 mEq/L (3.5-5.2); SODIUM 141 mEq/L (134-144)
[2017-02-08 19:46] LABS: INR 1.76 (0.83-1.16); PROTIME(PATIENT) 20.6 SEC (12.0-15.0)
[2017-02-08] MEDS ORDERED: oxyCODONE IR 5 MG TAB PO PRN (23:21)
[2017-02-08] MEDS ORDERED: METHOCARBAMOL 500 MG TAB PO PRN (23:21)
[2017-02-08] MEDS ORDERED: METOCLOPRAMIDE 5 MG TAB PO PRN (23:21)
[2017-02-08] MEDS ORDERED: PROMETHAZINE HCL 25 MG TAB PO PRN (23:21)
[2017-02-08] MEDS ORDERED: Eszopiclone [Lunesta] 3 MG PO PRN (23:21)
--- NOTE | 2017-02-08 23:36 | PDGENHP ---
History and Physical - Chief Complaint IRREGULAR HEART RATE - History of Present Illness This is a 58-year-old male with history of atrial fibrillation, mechanical aortic valve, aortic dissection with chronic diastolic heart failure presented to the emergency department today with irregular heartbeat. Patient tells me that his pulse has been ranging from the 30s to 140s over the past 48 hours. He was seen at [facility] yesterday where he was stabilized and sent home. Denies any syncope or presyncope. He has had some dizziness and fatigue as well as some hypotension. He was taken off of his trazodone yesterday since he thinks it was not helping him. He is currently on a low dose of metoprolol 12.5 mg twice daily that he has been taking.He is concerned that he may be hypothyroid. he reports thinning hair and cold intolerance. History Information - Allergies/Home Medication List Allergies/Adverse Reactions: Tetanus Vaccines and Toxoid [Tetanus] Allergy (Intermediate, Verified 10/29/16 15:22) trazodone Allergy (Intermediate, Verified 02/08/17 20:19) Other-Enter Comments zolpidem tartrate [From Ambien] Allergy (Intermediate, Verified 02/08/17 20:19) Other-Enter Comments Home Medications: Folic Acid [Folic Acid 1 MG (*)] 1 mg PO DAILY 08/03/16 [Last Taken 02/08/17] Furosemide [Lasix 40 MG (*)] 40 mg PO DAILY 08/03/16 [Last Taken 02/08/17] Multivitamins [Multivitamin (*)] 1 each PO DAILY 08/03/16 [Last Taken 02/08/17] Pantoprazole Sodium [Protonix 40mg (*)] 40 mg PO DAILY 08/03/16 [Last Taken ] Promethazine HCl [Phenergan 25mg (*)] 25 mg PO Q6 PRN 08/03/16 [Last Taken Unknown] Sulfamethox/Tmp 800/160 mg [Bactrim DS] 1 tab PO HS 08/03/16 [Last Taken ] Warfarin Sodium [Coumadin 5MG (*)] 5 mg PO MOTUWEFRSA@16 08/03/16 [Last Taken ] Warfarin Sodium [Coumadin 5MG (*)] 7.5 mg PO SUTH@1600 08/03/16 [Last Taken 11/11] buPROPion XL [Wellbutrin 150mg XL] 150 mg PO DAILY 08/03/16 [Last Taken 02/06/17 ] oxyCODONE IR [Oxycodone Ir (*)] 5 - 10 mg PO Q4 PRN 08/03/16 [Last Taken ] Metoclopramide [Reglan 5 mg (*)] 5 mg PO ACHS PRN 09/23/16 [Last Taken 02/07/17] Ranitidine HCl 150 mg PO BID 09/23/16 [Last Taken 02/08/17] Eszopiclone [Lunesta] 3 mg PO HS PRN 12/26/16 [Last Taken Unknown] Metolazone [Zaroxolyn 5MG (*)] 5 mg PO DAILY 12/26/16 [Last Taken 02/08/17] TESTOSTERONE [Androgel 1.62% pump] 1 monster TD DAILY 12/26/16 [Last Taken 02/08/17] Methocarbamol [Robaxin 500 mg (*)] 1,000 mg PO BID PRN 02/08/17 [Last Taken Unknown] I have personally reviewed and updated: family history, medical history, social history, surgical history - Past Medical History atrial fibrillation Additional medical history: RECURRING STAPH INFECTIONS ON CHRONIC PROPHYLAXIS - Surgical History Additional surgical history: 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, Atrial fibrillation flutter on anticoagulated,, subdural hematoma the setting of anticoagulation, coronary artery disease status post AR, chronic back pain, 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, nephrolithiasis, a gastric ulceration, 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 - Social History Smoking Status: Never smoked Alcohol Use: None Review of Systems ROS: 10pt was reviewed & negative except for what was stated in HPI & below Physical Exam Temp Pulse Resp BP Pulse Ox 36.6 C 82 18 122/78 H 93 02/08/17 20:07 02/08/17 20:23 02/08/17 20:23 02/08/17 20:23 02/08/17 20:23 Constitutional: no apparent distress, appears nourished, not in pain Eyes: PERRL, anicteric sclera, EOMI Ears, Nose, Mouth, Throat: moist mucous membranes, hearing normal, ears appear normal, no oral mucosal ulcers Cardiovascular: regular rate and rhythym, systolic murmur, No JVD, No edema Respiratory: no respiratory distress, no rales or rhonchi, clear to auscultation , No expiratory wheeze, No inspiratory crackles Gastrointestinal: normoactive bowel sounds, soft, non-tender abdomen, no palpable masses, No guarding, No rebound Genitourinary: no bladder fullness, no bladder tenderness Skin: warm, normal color, no rashes or abrasions, no fluctuance, no induration, No mottled Musculoskeletal: full muscle strength, no muscle tenderness, normal joint ROM, no joint effusions Neurologic: AAOx3, CN II-XII Intact, No facial droop Psychiatric: interacting appropriately, not anxious, not encephalopathic, thought process linear Lab Data & Imaging Review 02/08/17 19:00 02/08/17 19:00 WBC 4.60 10^3/uL (3.80-9.50) 02/08/17 19:00 RBC 4.68 10^6/uL (4.40-6.38) 02/08/17 19:00 Hgb 14.3 g/dL (13.7-17.5) 02/08/17 19:00 Hct 44.9 % (40.0-51.0) 02/08/17 19:00 MCV 95.9 fL (81.5-99.8) 02/08/17 19:00 MCH 30.6 pg (27.9-34.1) 02/08/17 19:00 MCHC 31.8 g/dL (32.4-36.7) L 02/08/17 19:00 RDW 19.9 % (11.5-15.2) H 02/08/17 19:00 Plt Count 131 10^3/uL (150-400) L 02/08/17 19:00 MPV 10.3 fL (8.7-11.7) 02/08/17 19:00 Neut % (Auto) 71.3 % (39.3-74.2) 02/08/17 19:00 Lymph % (Auto) 16.3 % (15.0-45.0) 02/08/17 19:00 [place] % (Auto) 10.0 % (4.5-13.0) 02/08/17 19:00 Eos % (Auto) 2.0 % (0.6-7.6) 02/08/17 19:00 Baso % (Auto) 0.2 % (0.3-1.7) L 02/08/17 19:00 Nucleat RBC Rel Count 0.0 % (0.0-0.2) 02/08/17 19:00 Absolute Neuts (auto) 3.28 10^3/uL (1.70-6.50) 02/08/17 19:00 Absolute Lymphs (auto) 0.75 10^3/uL (1.00-3.00) L 02/08/17 19:00 Absolute Monos (auto) 0.46 10^3/uL (0.30-0.80) 02/08/17 19:00 Absolute Eos (auto) 0.09 10^3/uL (0.03-0.40) 02/08/17 19:00 Absolute Basos (auto) 0.01 10^3/uL (0.02-0.10) L 02/08/17 19:00 Absolute Nucleated RBC 0.00 10^3/uL (0-0.01) 02/08/17 19:00 Immature Gran % 0.2 % (0.0-1.1) 02/08/17 19:00 Immature Gran # 0.01 10^3/uL (0.00-0.10) 02/08/17 19:00 PT 20.6 SEC (12.0-15.0) H 02/08/17 19:00 INR 1.76 (0.83-1.16) H 02/08/17 19:00 Sodium 141 mEq/L (134-144) 02/08/17 19:00 Potassium 4.2 mEq/L (3.5-5.2) 02/08/17 19:00 Chloride 103 mEq/L (97-110) 02/08/17 19:00 Carbon Dioxide 29 mEq/l (22-31) 02/08/17 19:00 Anion Gap 9 mEq/L (8-16) 02/08/17 19:00 BUN 20 mg/dL (7-23) 02/08/17 19:00 Creatinine 0.9 mg/dL (0.7-1.3) 02/08/17 19:00 Estimated GFR > 60 02/08/17 19:00 Glucose 99 mg/dL (70-100) 02/08/17 19:00 Calcium 8.8 mg/dL (8.5-10.4) 02/08/17 19:00 Magnesium 2.0 mg/dL (1.6-2.3) 02/08/17 18:02 Visualized and Interpreted EKG results: Yes EKG Interpretation: Positive for: normal sinsus rhythm (84 bpm) Assessment & Plan Assessment: This is a 58-year-old male with history of atrial fibrillation, mechanical aortic valve, aortic dissection with chronic diastolic heart failure Presents with: # reported bradycardia - patient will be placed on observation where he will be monitored on telemetry. EP Cardiology to consult in the morning. Will hold his home dose of beta-sammie. Check TSH # history of mechanical aortic valve replacement with subtherapeutic INR - provide in therapeutic bridging low molecular weight heparin while in the hospital and continue to monitor INR daily
[2017-02-09] MEDS ORDERED: TEMAZEPAM 15 MG CAP PO PRN (00:17)
[2017-02-09 06:28] LABS: INR 1.67 (0.83-1.16); PROTIME(PATIENT) 19.7 SEC (12.0-15.0)
[2017-02-09] MEDS ORDERED: buPROPion XL 150 MG TAB PO SCH (09:00)
[2017-02-09] MEDS ORDERED: POTASSIUM CL 20 MEQ TAB PO SCH (09:00)
[2017-02-09] MEDS ORDERED: MULTIVITAMINS 1 EACH TAB PO SCH (09:00)
[2017-02-09] MEDS ORDERED: PANTOPRAZOLE SODIUM 40 MG TAB PO SCH (09:00)
[2017-02-09] MEDS ORDERED: FAMOTIDINE 20 MG TAB PO SCH (09:00)
[2017-02-09] MEDS ORDERED: ENOXAPARIN 100 MG/ML SYR SC SCH (09:00)
[2017-02-09] MEDS ORDERED: TESTOSTERONE TD SCH (09:00)
[2017-02-09] MEDS ORDERED: FOLIC ACID 1 MG TAB PO SCH (09:00)
[2017-02-09] MEDS ORDERED: METOPROLOL TARTRATE 25 MG TAB PO SCH (11:30)
--- NOTE | 2017-02-09 14:35 | PDCARPN ---
Cardiology Progress Note Assessment/Plan: The patient is a 66 year old male who is very well known to me. He has a lengthy and complex cardiac history which is detailed extensively throughout the [facility] electronic record. His cardiac history has been dominated recently by his paroxysmal atrial flutter. At times his atrial flutter would persist for several days. He was very symptomatic with it. Attempts at medical therapy were continued because of potential concern that complications could occur if he had an EP study/ablation procedure was attempted secondary to the presence of an inferior vena cava filter. Ultimately, medical therapy prove to be markedly suboptimal and the patient underwent a cavotricuspid isthmus ablation earlier this year. This substantially improved his clinical status. He presented to the emergency room yesterday reporting episodes of bradycardia with heart rates in the 30s to 40s. He was also seen in urgent care yesterday because he was concerned about his electrolytes. There was no sign of bradycardia at that time. His report of heart rates in the 30s to 40s was based on readings he obtained on his home blood pressure monitor and pulse oximeter. However, he was also having frequent PVCs including episodes of ventricular bigeminy. It seems clear that his PVC beats were not being picked up a by his blood pressure cuff or his pulse oximeter, thereby giving a false low estimate of his heart rate. On telemetry here he continues to have PVCs. Currently his heart rate is 90s. He has not demonstrated any recurrence of atrial flutter since his procedure in November. He also reported low blood pressure. This is not uncommon at all for him and, in fact, was a major factor in his suboptimal response to medical therapy because of the inability to uptitrate his medications. Recommendations: - Resume his home dose of metoprolol which had been held for presumptive bradycardia. - Will check in on him later today to assess his clinical response. Conceivably , his PVCs might actually increase at a slower heart rate because of the longer R-R cycle length of allowing greater opportunity for PVCs to occur. If this appears to be the case, would consider restarting low dose sotalol. - He may be able to be discharged later today. However, he will likely need a few days of Lovenox to cover his mechanical aortic valve while his Coumadin is adjusted. 02/09/17 14:28 Subjective: No chest pain or dyspnea. Objective: Vital Signs (8 Hrs) Temp Pulse Resp BP Pulse Ox 02/09/17 11:38 36.2 C 90 17 136/86 H 96 02/09/17 11:27 90 136/86 H 02/09/17 07:36 36.3 C 72 13 101/70 93 Intake/Output (24 Hrs) 02/08/17 02/09/17 02/10/17 05:59 05:59 05:59 Other: Weight 104.326 kg Number of Voids 1 Result Diagrams: 02/08/17 19:00 02/08/17 19:00 - Physical Exam Constitutional: no apparent distress Eyes: anicteric sclera Ears, Nose, Mouth, Throat: moist mucous membranes Cardiovascular: regular rate and rhythm (with occasional PVCs), other (crisp prosthetic valve sounds) Respiratory: clear to auscultate bilat Gastrointestinal: normoactive bowel sounds, no tenderness, no masses Skin: no edema Neurologic: AAOx3 Psychiatric: not anxious ICD10 Worksheet Patient Problems: Problems Problem Status Onset Symptomatic bradycardia Acute Atrial fibrillation with rapid ventricular response Acute Epistaxis Acute Hypoxia Acute Lung mass Acute Shortness of breath Acute Tachycardia Acute Weakness Acute
[2017-02-09] MEDS ORDERED: WARFARIN SODIUM 5 MG TAB PO SCH (16:00)
[2017-02-09 16:09] VITALS: BP 128/80; PULSE 74; RESP 12; TEMP 97.4; O2SAT 97
[2017-02-09] MEDS ORDERED: WARFARIN SODIUM 2.5 MG TAB PO ONE (16:38)
--- NOTE | 2017-02-09 16:47 | PDDCSUM ---
Discharge Summary Discharge Summary: DISCHARGE SUMMARY FOLLOW-UP ITEMS: Follow up INR on 02/12 DATE OF ADMISSION: 02/08/2017 DATE OF DISCHARGE: 02/09/2017 DISCHARGE DIAGNOSES: 1. Symptomatic PVCs with ventricular bigeminy 2. Atrial flutter 3. Mechanical aortic valve CONSULTATIONS: Cardiology by Dr. Sanchez PROCEDURES / IMAGING: Telemetry monitoring CHIEF COMPLAINT: Concerning heart rates SUBJECTIVE: Patient is feeling well at time of discharge he is concerned about his sleep PHYSICAL EXAM ON DISCHARGE: Systolic blood pressure is 100-120, heart rate is in the 80s, heart rhythm is regular with occasional ectopic beats and NS 2 click at the right sternal border LABS ON DISCHARGE: TSH 2.5 HOSPITAL COURSE BY PROBLEM: 1. Frequent PVCs and ventricular bigeminy. Most likely reason the patient's heart rates have been demonstrating wide variation readings is not that his atrial flutter has returned but rather that his home recording devices are picking up his frequent PVCs. The patient was monitored on telemetry did not demonstrate any evidence of junctional rhythms or bradycardia. He was seen in consultation by Dr. Sanchez who reviewed his telemetry and noted that his PVCs were increasing and occurring in the setting of ventricular bigeminy after his metoprolol was re-initiated, most likely secondary to a longer R-R cycle length allowing for greater opportunity for PVCs to occur. Consequently, Dr. Sanchez decided to take the patient off of his metoprolol and place him on low-dose sotalol. The patient has tolerated sotalol in the past. He will not require inpatient loading. Will be initiated at this time and the patient will follow up with Dr. Sanchez. 2. Atrial flutter. Patient has a history of atrial flutter but he did not have episodes of this during his hospitalization. His home devices interpretation that his heart rates are in the 140-150s is most likely secondary to the above, as there was no evidence of rapid a flutter during this hospitalization. 3. Mechanical aortic valve. Patient has a mechanical aortic valve and he has a subtherapeutic INR. I have made a small dose adjustment to his Coumadin, adjusting him from 7.5 mg twice weekly to 7.5 mg 3 times weekly. Also gave him an additional 2.5 mg orally at this time. Her given that he has a mechanical valve, he is at risk for clot formation and he should be bridged with Lovenox therapy. Received bridging during this hospitalization he will receive 3 doses of Lovenox 100 mg to be administered beginning ton and carried through tomorrow. He will then have his PT and INR checked on Sunday which is the soonest available time to do so. I am hesitant to give him more than 3 doses of Lovenox as he may become therapeutic on his INR and I would not want him accidentally taking additional Lovenox for several days in that setting. DISCHARGE MEDICATIONS: Please see official discharge medication reconciliation sheet in chart , Lovenox 100 mg twice daily, starting ton, warfarin 7.5 mg on Sunday and Sunday, 5 mg all other days, sotalol 40 mg twice daily. DISCHARGE INSTRUCTIONS: Patient should follow up with Dr. Sanchez as scheduled in the [place] office on 02/28 at 1:15 p.m..
[2017-02-09] MEDS ORDERED: SULFAMETHOX/TMP 800/160 MG 1 TAB PO SCH (21:00)
[2017-02-11] MEDS ORDERED: WARFARIN SODIUM 7.5 MG TAB PO SCH (16:00)
== END 2017-02-09 17:19 | disposition home or self-care (01) ==
LOC: F1N 20:18
PROVIDERS: ADMIT Internal Medicine; ATTEND Internal Medicine
DX: I49.3 Ventricular premature depolarization (principal); R00.8 Other abnormalities of heart beat; I48.92 Unspecified atrial flutter; I50.32 Chronic diastolic (congestive) heart failure; I25.10 Atherosclerotic heart disease of native coronary artery without angina pectoris; I25.2 Old myocardial infarction; M54.9 Dorsalgia, unspecified; Z79.01 Long term (current) use of anticoagulants; Z95.2 Presence of prosthetic heart valve
CPT/HCPCS: 93005; G0378; J1650

== ENCOUNTER 2017-05-27 16:06 | Emergency (ER) | payer OTHER ==
[2017-05-27] MEDS ORDERED: ONDANSETRON 4 MG/2 ML VIAL IVP ONE (16:32)
[2017-05-27] MEDS ORDERED: NS 1,000 ML IV ONE (16:32)
--- NOTE | 2017-05-27 16:36 | EDPHY ---
H & P Time Seen by Provider: 05/27/17 16:27 HPI/ROS: CHIEF COMPLAINT: Abdominal pain and distension HISTORY OF PRESENT ILLNESS: Patient is a 66-year-old man who comes to the emergency department complaining of abdominal distention, pain and constipation. He states that he has not had a bowel movement in the last 4 days. He has been able to pass gas. He has a history of appendectomy. He also has an extensive cardiac history including atrial fibrillation, mechanical aortic valve, aortic dissection status post repair and diastolic heart failure on Coumadin. He denies fevers. He denies vomiting but states he does not have much of an appetite. He denies tenderness. Normal urination. Normal breathing. No chest pain. He does have mild nausea but no vomiting. REVIEW OF SYSTEMS: Constitutional: denies: chills, fever, recent illness, recent injury EENTM: denies: blurred vision, double vision, nose congestion Respiratory: denies: cough, shortness of breath Cardiac: denies: chest pain, irregular heart rate, lightheadedness, palpitations Gastrointestinal/Abdominal: See HPI denies: vomiting, blood streaked stools Genitourinary: denies: dysuria, frequency, hematuria, pain Musculoskeletal: denies: joint pain, muscle pain Skin: denies: lesions, rash, jaundice, bruising Neurological: denies: headache, numbness, paresthesia, tingling, dizziness, weakness Hematologic/Lymphatic: denies: blood clots, easy bleeding, easy bruising Immunologic/allergic: denies: HIV/AIDS, transplant EXAM: GENERAL: Well-appearing, well-nourished and in no acute distress. HEAD: Atraumatic, normocephalic. EYES: Pupils equal round and reactive to light, extraocular movements intact, sclera anicteric, conjunctiva are normal. ENT: TMs normal, nares patent, oropharynx clear without exudates. Moist mucous membranes. NECK: Normal range of motion, supple without lymphadenopathy or JVD. LUNGS: Breath sounds clear to auscultation bilaterally and equal. No wheezes rales or rhonchi. HEART: Regular rate and rhythm without murmurs, rubs or gallops. ABDOMEN: Distended, nontender, scars well healed. BACK: No CVA tenderness, no spinal tenderness, step-offs or deformities EXTREMITIES: Normal range of motion, no pitting or edema. No clubbing or cyanosis. NEUROLOGICAL: Cranial nerves II through XII grossly intact. Normal speech, normal gait. 5/5 strength, normal movement in all extremities, normal sensation PSYCH: Normal mood, normal affect. SKIN: Warm, dry, normal turgor, no visible rashes or lesions. Source: Patient Exam Limitations: No limitations - Personal History Tetanus Vaccine Date: ALLERGY - Medical/Surgical History Hx Asthma: No Hx Chronic Respiratory Disease: No Hx Diabetes: No Hx Cardiac Disease: Yes Hx Renal Disease: No Hx Cirrhosis: No Hx Alcoholism: No Hx HIV/AIDS: No Hx Splenectomy or Spleen Trauma: No Other PMH: a fib/flutter, aortic valve replacement and aortic root graft, aortic dissection and grafting, cardiac ablation, chronic dizziness and nausea. 3 L of oxygen at baseline - Family History Significant Family History: No pertinent family hx - Social History Smoking Status: Never smoked Alcohol Use: Sober Drug Use: None Constitutional: Initial Vital Signs Temperature (C) 36.7 C 05/27/17 16:15 Heart Rate 98 05/27/17 16:15 Respiratory Rate 18 05/27/17 16:15 Blood Pressure 138/99 H 05/27/17 16:15 O2 Sat (%) 94 05/27/17 16:15 O2 Delivery Mode Nasal Cannula O2 (L/minute) 3 Allergies/Adverse Reactions: Tetanus Vaccines and Toxoid [Tetanus] Allergy (Intermediate, Verified 05/27/17 16:30) trazodone Allergy (Intermediate, Verified 05/27/17 16:30) Other-Enter Comments zolpidem tartrate [From Ambien] Allergy (Intermediate, Verified 05/27/17 16:30) Other-Enter Comments Home Medications: Medication Instructions Recorded Promethazine HCl [Phenergan 25mg 08/03/16 (*)] Sulfamethox/Tmp 800/160 mg 08/03/16 [Bactrim DS] buPROPion XL [Wellbutrin 150mg XL] 08/03/16 oxyCODONE IR [Oxycodone Ir (*)] 08/03/16 Folic Acid 05/27/17 Furosemide 05/27/17 Lunesta 05/27/17 Metolazone 05/27/17 Ondansetron 05/27/17 Pantoprazole Sodium 05/27/17 Potassium 05/27/17 Ranitidine HCl 05/27/17 Sotalol HCl [Betapace 80 MG (*)] 05/27/17 Warfarin Sodium [Coumadin 7.5MG 05/27/17 (*)] Medical Decision Making - Diagnostics Imaging Results: Imaging Impressions Abdomen CT 05/27/17 16:33 Impression: 1. Mild constipation. 2. Plump but probably normal retrocecal appendix. 3. Bilateral nonobstructive nephrolithiasis. 4. Suspect steatosis of the liver. 5. Right basilar peripheral atelectasis with small effusion. Query pulmonary embolism or pneumonia? Results discussed with Dr. Manuel Culp at 6:23 PM General information for patients regarding this examination can be found at [email or web address]. If you have questions or comments about this report, please contact me at (hospital) or [phone] (cell). Imaging: Discussed imaging studies w/ call center dispatcher Radiologist ED Course/Re-evaluation: we discussed the CT results. The patient denies having any shortness of breath or thoracic symptoms. We discussed the constipation seen on CT scan. We discussed titrating with MiraLax. I will give the patient potassium and magnesium for his slightly low potassium. He states that he takes potassium at home and has had our time keeping it up. His abdominal exam remains nontender. He is eager to go home. We discussed indications for returning. We also discussed trying to take your opiates. Differential Diagnosis: Partial list of the Differential diagnosis considered include but were not limited to; constipation, small bowel obstruction and although unlikely based on the history and physical exam, I also considered ischemia, volvulus, PE, pneumonia, acute coronary disease, appendicitis. I discussed these differential diagnoses and the plan with the patient as well as the usual and expected course. The patient understands that the diagnosis is provisional and that in medicine we are not always correct and that further workup is often warranted. Usual and customary warnings were given. All of the patient's questions were answered. The patient was instructed to return to the emergency department should the symptoms at all worsen or return, otherwise to followup with the physician as we discussed. - Data Points Laboratory Results: Laboratory Results 05/27/17 16:43 05/27/17 16:43 05/27/17 05/27/17 16:43 16:43 WBC 6.28 10^3/uL 10^3/uL (3.80-9.50) RBC 5.34 10^6/uL 10^6/uL (4.40-6.38) Hgb 17.6 g/dL H g/dL (13.7-17.5) Hct 51.0 % % (40.0-51.0) MCV 95.5 fL fL (81.5-99.8) MCH 33.0 pg pg (27.9-34.1) MCHC 34.5 g/dL g/dL (32.4-36.7) RDW 16.7 % H % (11.5-15.2) Plt Count 171 10^3/uL 10^3/uL (150-400) MPV 9.9 fL fL (8.7-11.7) Neut % (Auto) 78.6 % H % (39.3-74.2) Lymph % (Auto) 10.4 % L % (15.0-45.0) [place] % (Auto) 9.6 % % (4.5-13.0) Eos % (Auto) 0.8 % % (0.6-7.6) Baso % (Auto) 0.3 % % (0.3-1.7) Nucleat RBC Rel Count 0.0 % % (0.0-0.2) Absolute Neuts (auto) 4.94 10^3/uL 10^3/uL (1.70-6.50) Absolute Lymphs (auto) 0.65 10^3/uL L 10^3/uL (1.00-3.00) Absolute Monos (auto) 0.60 10^3/uL 10^3/uL (0.30-0.80) Absolute Eos (auto) 0.05 10^3/uL 10^3/uL (0.03-0.40) Absolute Basos (auto) 0.02 10^3/uL 10^3/uL (0.02-0.10) Absolute Nucleated RBC 0.00 10^3/uL 10^3/uL (0-0.01) Immature Gran % 0.3 % % (0.0-1.1) Immature Gran # 0.02 10^3/uL 10^3/uL (0.00-0.10) Sodium 139 mEq/L mEq/L (134-144) Potassium 3.3 mEq/L L mEq/L (3.5-5.2) Chloride 92 mEq/L L mEq/L (97-110) Carbon Dioxide 33 mEq/l H mEq/l (22-31) Anion Gap 14 mEq/L mEq/L (8-16) BUN 12 mg/dL mg/dL (7-23) Creatinine 1.1 mg/dL mg/dL (0.7-1.3) Estimated GFR > 60 Glucose 146 mg/dL H mg/dL (70-100) Calcium 10.3 mg/dL mg/dL (8.5-10.4) Total Bilirubin 1.0 mg/dL mg/dL (0.1-1.4) Conjugated Bilirubin 0.3 mg/dL mg/dL (0.0-0.5) Unconjugated Bilirubin 0.7 mg/dL mg/dL (0.0-1.1) AST 48 IU/L IU/L (17-59) ALT 43 IU/L IU/L (21-72) Alkaline Phosphatase 109 IU/L IU/L (38-126) Total Protein 7.5 g/dL g/dL (6.3-8.2) Albumin 4.4 g/dL g/dL (3.5-5.0) Lipase 184.0 IU/L IU/L (23-300) Medications Given: Discontinued Medications Hydromorphone HCl (Dilaudid) 1 mg IVP EDNOW ONE Stop: 05/27/17 17:54 Last Admin: 05/27/17 17:57 Dose: 1 mg Sodium Chloride (Ns) 1,000 mls @ 0 mls/hr IV ONCE ONE; Wide Open PRN Reason: Protocol Stop: 05/27/17 16:33 Last Admin: 05/27/17 16:43 Dose: 1,000 mls Magnesium Sulfate (Magnesium Sulf 2 Gm (Premix)) 50 mls @ 50 mls/hr IV EDNOW ONE Stop: 05/27/17 19:19 Last Admin: 05/27/17 18:30 Dose: 50 mls Ondansetron HCl (Zofran) 4 mg IVP EDNOW ONE Stop: 05/27/17 16:33 Last Admin: 05/27/17 16:43 Dose: 4 mg Potassium Chloride (Klor-Con) 40 meq PO EDNOW ONE Stop: 05/27/17 18:19 Last Admin: 05/27/17 18:30 Dose: 40 meq Departure - Departure Disposition: Home, Routine, Self-Care Clinical Impression: Constipation Qualifiers: Constipation type: unspecified constipation type Qualified Code(s): K59.00 - Constipation, unspecified Condition: Fair Instructions: Constipation (ED) Additional Instructions: Take MiraLax as discussed. Start with a cap full every hour until you have his successful bowel movement then you may Decreased to 2 capsules per day. Or discontinue as needed. Referrals: VITA SARGENT [Primary Care Provider] - As per Instructions
[2017-05-27 16:53] LABS: % IMMATURE GRANULYOCYTES 0.3 % (0.0-1.1); ABSOLUTE IMMATURE GRANULOCYTES 0.02 10^3/uL (0.00-0.10); ADD DIFF? NO; ADD MORPH? NO; ADD SCAN? NO; ATYPICAL LYMPHOCYTE FLAG 10 (0-99); FRAGMENT RBC FLAG 0 (0-99); HEMOGLOBIN 17.6 g/dL (13.7-17.5); LEFT SHIFT FLG 0 (0-99); LIPEMIA HEMOLYSIS FLAG 90 (0-99); MEAN CELL HEMOGLOBIN CONCENTR. 34.5 g/dL (32.4-36.7); MEAN CELL VOLUME 95.5 fL (81.5-99.8); MEAN PLATELET VOLUME 9.9 fL (8.7-11.7); PLATELET CLUMPS FLAG 10 (0-99); PLATELET COUNT 171 10^3/uL (150-400); RED BLOOD CELL COUNT 5.34 10^6/uL (4.40-6.38); RED CELL DISTRIBUTION WIDTH 16.7 % (11.5-15.2)
[2017-05-27] MEDS ORDERED: IOPAMIDOL (ISOVUE-300) 100 ML BTL ONE (17:04)
[2017-05-27 17:12] LABS: ALANINE AMINOTRANSFERASE 43 IU/L (21-72); ALBUMIN 4.4 g/dL (3.5-5.0); ALKALINE PHOSPHATASE 109 IU/L (38-126); ANION GAP 14 mEq/L (8-16); ASPARTATE AMINOTRANSFERASE 48 IU/L (17-59); BILIRUBIN-CONJUGATED 0.3 mg/dL (0.0-0.5); BILIRUBIN-UNCONJUGATED 0.7 mg/dL (0.0-1.1); CALCIUM 10.3 mg/dL (8.5-10.4); CARBON DIOXIDE 33 mEq/l (22-31); CHLORIDE 92 mEq/L (97-110); CREATININE 1.1 mg/dL (0.7-1.3); GLOMERULAR FILTRATION RATE > 60; GLUCOSE 146 mg/dL (70-100); POTASSIUM 3.3 mEq/L (3.5-5.2); SODIUM 139 mEq/L (134-144); TOTAL PROTEIN 7.5 g/dL (6.3-8.2)
[2017-05-27 17:53] VITALS: TEMP 98.2
[2017-05-27] MEDS ORDERED: HYDROmorphONE/DILAUDID 1 MG/ML SYR IVP ONE (17:53)
[2017-05-27] MEDS ORDERED: POTASSIUM CL 10 MEQ TAB PO ONE (18:18)
[2017-05-27] MEDS ORDERED: MAGNESIUM SULF 2 GM/WATER 50 ML IV ONE (18:20)
[2017-05-27 19:37] VITALS: BP 138/104; PULSE 81; RESP 18; O2SAT 91
== END 2017-05-27 19:30 | disposition home or self-care (01) ==
LOC: CED 16:06
DX: K59.00 Constipation, unspecified (principal); E86.9 Volume depletion, unspecified; Z79.01 Long term (current) use of anticoagulants
CPT/HCPCS: 74177; 96361; 96365; 96375; 99285; J1170; J2405; Q9967; 80048-PO; 80076-PO; 83690-PO; 85025-PO

== ENCOUNTER 2017-07-07 11:42 | Emergency (ER) | payer OTHER ==
[2017-07-07 12:03] VITALS: RESP 18; TEMP 98.4
[2017-07-07 12:55] LABS: % IMMATURE GRANULYOCYTES 0.1 % (0.0-1.1); ABSOLUTE IMMATURE GRANULOCYTES 0.01 10^3/uL (0.00-0.10); ADD DIFF? NO; ADD MORPH? NO; ADD SCAN? NO; ATYPICAL LYMPHOCYTE FLAG 0 (0-99); FRAGMENT RBC FLAG 0 (0-99); HEMATOCRIT 46.9 % (40.0-51.0); HEMOGLOBIN 16.2 g/dL (13.7-17.5); LEFT SHIFT FLG 0 (0-99); LIPEMIA HEMOLYSIS FLAG 90 (0-99); MEAN CELL HEMOGLOBIN 33.9 pg (27.9-34.1); MEAN CELL HEMOGLOBIN CONCENTR. 34.5 g/dL (32.4-36.7); MEAN CELL VOLUME 98.1 fL (81.5-99.8); MEAN PLATELET VOLUME 10.4 fL (8.7-11.7); PLATELET CLUMPS FLAG 0 (0-99); PLATELET COUNT 154 10^3/uL (150-400); RED BLOOD CELL COUNT 4.78 10^6/uL (4.40-6.38); RED CELL DISTRIBUTION WIDTH 14.2 % (11.5-15.2)
[2017-07-07 13:12] LABS: INR 3.21 (0.83-1.16); PROTIME(PATIENT) 32.8 SEC (12.0-15.0)
[2017-07-07 13:13] LABS: APTT 36.8 SEC (23.0-38.0)
[2017-07-07 13:19] LABS: ALANINE AMINOTRANSFERASE 54 IU/L (21-72); ALBUMIN 4.5 g/dL (3.5-5.0); ALKALINE PHOSPHATASE 92 IU/L (38-126); ANION GAP 16 mEq/L (8-16); ASPARTATE AMINOTRANSFERASE 60 IU/L (17-59); BILIRUBIN,TOTAL 1.1 mg/dL (0.1-1.4); CALCIUM 9.9 mg/dL (8.5-10.4); CARBON DIOXIDE 29 mEq/l (22-31); CHLORIDE 93 mEq/L (97-110); GLOMERULAR FILTRATION RATE > 60; GLUCOSE 183 mg/dL (70-100); POTASSIUM 3.6 mEq/L (3.5-5.2); SODIUM 138 mEq/L (134-144); TOTAL PROTEIN 7.2 g/dL (6.3-8.2)
--- NOTE | 2017-07-07 14:05 | EDPHY ---
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 3 L of oxygen at baseline - Family History Significant Family History: No pertinent family hx - Social History Smoking Status: Never smoked Alcohol Use: None Drug Use: None Time Seen by Provider: 07/07/17 12:03 HPI/ROS: This patient presents with 5 weeks or so of vague abdominal bloating and discomfort. He was seen here the beginning of May with similar symptoms with a benign CT scan at that time. He takes opiates for chronic low back pain and has not had a bowel movement in 5 days. He reports his "intestines are not working." He reports compliance with medications. He has mild nausea but no vomiting. He reports decreased appetite but is tolerating good p. o. fluid intake. He reports that he has had similar symptoms intermittently for sometime now has had workup with Gastroenterology without an answer as to why he occasionally gets the bloating. He reports mild lower belly discomfort associated with this described as crampy in nature currently minimal in intensity no worsening with movement. No other exacerbating or alleviating factors are noted. ROS: No fevers or chills no other constitutional symptoms HEENT: No URI symptoms. Pulmonary: He has chronic dyspnea without recent change. He has no pleuritic pain and no cough. He is on his baseline supplemental O2 Cardiovascular: Occasionally dizzy when he closes his eyes- no significant lightheadedness. No chest pain GI: As per HPI. : No urinary symptoms. Neuro: No numbness tingling or other acute symptoms Endocrine: No complaints Integumentary: Negative Complete review of symptoms is otherwise negative (Juan Jose Martino) - Physical Exam Exam: General Appearance: Alert, no distress. Eyes: Pupils equal and round no pallor or injection. ENT, Mouth: Mucous membranes moist. Respiratory: There are no retractions, lungs are clear to auscultation. Cardiovascular: Regular rate and rhythm. With mechanical valve systolic click Gastrointestinal: Perhaps mild distension surgical scar is clean dry intact no significant tenderness. No guarding or rebound. No organomegaly is appreciated Rectal exam: No external hemorrhoids, no significant stool in the vault this palpable no prostatic hypertrophy or tenderness. Trace amount of brown stool on the glove no melena. Neurological: GCS 15 with no focal deficits Skin: Warm and dry, no rashes. Musculoskeletal: Neck is supple nontender. Extremities are symmetrical, full range of motion. Psychiatric: Mood and affect normal DIFFERENTIAL DIAGNOSIS: After history and physical exam differential diagnosis was considered for slow transit constipation from opiates, electrolyte abnormality causing constipation, doubt diverticulitis, UTI, obstruction ( Juan Jose Martino) Constitutional: Initial Vital Signs Temperature (C) 36.9 C 07/07/17 11:45 Heart Rate 103 H 07/07/17 11:45 Respiratory Rate 18 07/07/17 11:45 Blood Pressure 115/89 H 07/07/17 11:45 O2 Sat (%) 92 07/07/17 11:45 O2 Delivery Mode Nasal Cannula O2 (L/minute) 2 Allergies/Adverse Reactions: Tetanus Vaccines and Toxoid [Tetanus] Allergy (Intermediate, Verified 07/07/17 11:53) trazodone Allergy (Intermediate, Verified 07/07/17 11:53) Other-Enter Comments zolpidem tartrate [From Ambien] Allergy (Intermediate, Verified 07/07/17 11:53) Other-Enter Comments Home Medications: Medication Instructions Recorded Promethazine HCl [Phenergan 25mg 08/03/16 (*)] Sulfamethox/Tmp 800/160 mg 08/03/16 [Bactrim DS] buPROPion XL [Wellbutrin 150mg XL] 08/03/16 oxyCODONE IR [Oxycodone Ir (*)] 08/03/16 Folic Acid 05/27/17 Furosemide 05/27/17 Lunesta 05/27/17 Metolazone 05/27/17 Ondansetron 05/27/17 Pantoprazole Sodium 05/27/17 Potassium 05/27/17 Ranitidine HCl 05/27/17 Sotalol HCl [Betapace 80 MG (*)] 05/27/17 Warfarin Sodium [Coumadin 7.5MG 05/27/17 (*)] Docusate Sodium [Colace 100 MG (*)] 100 mg PO BID #30 cap 07/07/17 Sertraline HCl 07/07/17 Medical Decision Making ED Course/Re-evaluation: Our nurse given a soapsuds enema without results. Review of his labs reveals no significant abnormal findings in CBC comp metabolic panel lipase urinalysis. Hemoccult is negative. I discussed the case with the oncoming physician Dr. Little at 3:15 a.m. with 3-way of the abdomen pending. Anticipate that he will go home with plan for constipation as outlined and discharge instructions Provided [address] way of the abdomen reveals no evidence of bowel obstruction. I counseled the patient regarding care plan for constipation. I think the patient has chronic constipation that is causing discomfort. He does not have any acute abdomen or other concerning findings on workup. I encouraged him to consider tapering off of his opiate narcotics and explained the role that they have in his constipation. (Juan Jose Martino) Other Provider: care turned over at shift change pending plain films, workup to that point negative, likely constipation. Plain films were unremarkable, pt discharged home as originally planned. No further intervention. Advised close follow up with pcp. (Virginia Tillman) - Data Points Laboratory Results: Laboratory Results 07/07/17 12:44 07/07/17 12:44 Departure - Departure Disposition: Home, Routine, Self-Care Clinical Impression: Lower abdominal pain, Constipation Condition: Good Instructions: Constipation (ED), Fleet Enema (ED) Additional Instructions: Diagnosis: 1. Lower abdominal pain 2. Constipation Plan: Colace stool softener-2 day Metamucil tendon 20 g a day Milk a magnesia-30 mL a day MiraLax 17 g 2 times a day [place] oil 1-2 tbsp a day Enemas as needed Consider tapering off of your opiate narcotic. Above plan until the having 1 more bowel movements today. If you start having loose stools then dropped 1 of these therapies that time starting from the bottom going up for the top the list. Call your primary care physician to arrange follow-up appointment for further evaluation Return for any significant worsening despite the treatment plan Referrals: Duglas Mclean MD [Primary Care Provider] - As per Instructions Prescriptions: Docusate Sodium [Colace 100 MG (*)] 100 mg PO BID #30 cap
[2017-07-07 14:59] LABS: COLOR YELLOW; LEUKOCYTE ESTERASE,URINE NEGATIVE (NEGATIVE); NITRITE,URINE NEGATIVE (NEGATIVE)
[2017-07-07 16:55] VITALS: BP 121/79; PULSE 70; O2SAT 96
== END 2017-07-07 17:08 | disposition home or self-care (01) ==
LOC: CED 11:42
DX: K59.00 Constipation, unspecified (principal); Z79.01 Long term (current) use of anticoagulants
CPT/HCPCS: 71010-PO; 80053-PO; 81003-PO; 82270-PO; 83690-PO; 85025-PO; 85610-PO; 85730-PO

== ENCOUNTER 2018-02-27 17:47 | Emergency (ER) | payer OTHER ==
--- NOTE | 2018-02-27 17:50 | EDPHY ---
H & P Time Seen by Provider: 02/27/18 17:50 HPI/ROS: HPI CHIEF COMPLAINT: Right Shoulder pain, sharp stabbing pain. HISTORY OF PRESENT ILLNESS: This patient very pleasant 67-year-old male, extensive medical history including, atrial fib and a flutter, aortic dissection , dilated aortic root, he is on oxygen chronically at 3 L, chronic dizziness and nausea, on Coumadin, he presents emergency room with right shoulder pain and this consistent with cervical radiculopathy. Patient reports to me has a longstanding history of cervical radiculopathy with a bad disc at C7-T1. He states at times he suffers from shooting pain down the right lateral neck to his right posterior shoulder at times goes down his right arm. He states he just completed a course of steroids 3 days ago for this discomfort however approximately a day 2 days ago he started developing pain again. He states that he normally takes oxycodone for pain control however he would like something stronger for pain and would like to be placed back on steroids. He denies any chest pain or shortness of breath. Denies focal weakness. Denies focal numbness or tingling. He complains of right sharp stabbing cervical radicular pain shooting down right shoulder. No arm pain today. He denies any recent trauma. He states he has a known bad disc that he needs to eventually get fixed. Patient denies Chest Pain, Shortness of breath, denies jefferson, or abdominal pain, no focal weakness or numbness/tingling. Past Medical History: AFib/aflutter , aortic valve replacement, aortic root, aortic dissection, on chronic oxygen 3 L, chronic dizziness on Coumadin, cervical radiculopathy Past Surgical History: Aortic valve, cardiac ablation, aortic root, aortic dissection, CHF, sternal infection Social History: Denies drugs alcohol tobacco Family History: Noncontributory ROS REVIEW OF SYSTEMS: A comprehensive 10 point review of systems is otherwise negative aside from elements mentioned in the history of present illness. Exam Constitutional elderly, nontoxic appearing, triage nursing summary reviewed, vital signs reviewed, awake/alert. Eyes normal conjunctivae and sclera, EOMI, PERRLA. HENT normal inspection, atraumatic, moist mucus membranes, no epistaxis, neck supple/ no meningismus, no raccoon eyes. Respiratory clear to auscultation bilaterally, normal breath sounds, no respiratory distress, no wheezing. Cardiovascular rate normal, regular rhythm, no rub no edema, distal pulses normal. Gastrointestinal soft, non-tender, no rebound, no guarding, normal bowel sounds, no distension, no pulsatile mass. Genitourinary no CVA tenderness. Musculoskeletal right shoulder/right arm: Good distal pulse, good cap refill, good metal miner strength, full range of motion of the right arm, good strength, no weakness, complains with range of motion especially with full arm extension that he has sharp stabbing pain radiating from his neck to his right shoulder blade. It does not go down his arm at this time, he has good cap refill is a warm extremity. Neurovascularly otherwise intact. no midline vertebral tenderness, full range of motion, no calf swelling, no tenderness of extremities , no meningismus, good pulses, neurovascularly intact. Skin pink, warm, & dry, no rash, skin atraumatic. Neurologic awake, alert and oriented x 3, AAOx3, moves all 4 extremities equally, motor intact, sensory intact, CN II-XII intact, normal cerebellar, normal vision, normal speech. Psychiatric normal mood/affect. Heme/Lymph/Immune no lymphadenopathy. Differential Diagnosis: Includes but is not limited to in a particular order cervical radiculopathy, nerve root compression, annular tear, degenerative disc disease, compression fracture Medical Decision Making: Patient denies any recent trauma. He states he suffers from this chronically however this worse. He would like acute pain management here in the emergency room additionally would like to be placed back on steroids and pain control for home until he can follow up with his primary care doctor or neurosurgeon. Re-evaluation: Here in emergency room is neurovascularly intact. Will give a dose of Decadron 8 mg p. O., 2 mg p.o. Dilaudid. He states he cannot take ibuprofen as he is on Coumadin. I will give him a prescription for Decadron additionally very limited supply of Dilaudid 2 mg pills. Do encourage him to a further follow-up with his primary care doctor. 1912: Patient re-evaluated this time he does feel better after 2 mg p.o. Dilaudid, 25 mg p. O. Phenergan and 8 mg Decadron. Patient is requesting discharge. However prior to being discharged requesting IM shot of pain medicine. He is requesting IM Dilaudid. I will give him a 2 mg of IM Dilaudid for further pain control this evening. His right arm is neurovascular intact. Good distal pulse, good metal miner strength. Full range of motion. With range of motion of his shoulder joint he does have some pain. No chest pain or shortness of breath. Vital signs reviewed. We additionally discussed imaging possible MRI of his neck however at this time he has declined, would like to go home with pain medication. I did encourage him to have close follow-up. Additionally I will prescribe him a prescription for limited Dilaudid pills and Decadron. Encouraged him to follow up with his primary care doctor. Additionally if he has worsening pain numbness or tingling focal weakness he should return emergency room he understands this. Source: Patient - Personal History Tetanus Vaccine Date: ALLERGY - Medical/Surgical History Hx Asthma: No Hx Chronic Respiratory Disease: No Hx Diabetes: No Hx Cardiac Disease: Yes Hx Renal Disease: No Hx Cirrhosis: No Hx Alcoholism: No Hx HIV/AIDS: No Hx Splenectomy or Spleen Trauma: No Other PMH: a fib/flutter, aortic valve replacement and aortic root graft, aortic dissection and grafting, cardiac ablation, chronic dizziness and nausea. 3 L of oxygen at baseline - Social History Smoking Status: Never smoked Constitutional: Initial Vital Signs Temperature (C) 36.7 C 02/27/18 18:12 Heart Rate 99 02/27/18 18:12 Respiratory Rate 20 02/27/18 18:12 Blood Pressure 160/78 H 02/27/18 18:12 O2 Sat (%) 92 02/27/18 18:12 O2 Delivery Mode Nasal Cannula O2 (L/minute) 3 Allergies/Adverse Reactions: Tetanus Vaccines and Toxoid [Tetanus] Allergy (Intermediate, Verified 02/27/18 18:09) trazodone Allergy (Intermediate, Verified 02/27/18 18:09) Other-Enter Comments zolpidem tartrate [From Ambien] Allergy (Intermediate, Verified 02/27/18 18:09) Other-Enter Comments Home Medications: Medication Instructions Recorded Promethazine HCl [Phenergan 25mg 08/03/16 (*)] Sulfamethox/Tmp 800/160 mg 08/03/16 [Bactrim DS] buPROPion XL [Wellbutrin 150mg XL] 08/03/16 oxyCODONE IR [Oxycodone Ir (*)] 08/03/16 Folic Acid 05/27/17 Furosemide 05/27/17 Lunesta 05/27/17 Metolazone 05/27/17 Ondansetron 05/27/17 Pantoprazole Sodium 05/27/17 Potassium 05/27/17 Ranitidine HCl 05/27/17 Sotalol HCl [Betapace 80 MG (*)] 05/27/17 Warfarin Sodium [Coumadin 7.5MG 05/27/17 (*)] Docusate Sodium [Colace 100 MG (*)] 100 mg PO BID #30 cap 07/07/17 Sertraline HCl 07/07/17 Dexamethasone [Decadron 4 MG (*)] 6 mg PO DAILY #4 tab 02/27/18 HYDROmorphone HCL [Dilaudid 2 mg 2 mg PO BID #7 tab 02/27/18 (*)] Medical Decision Making - Data Points Medications Given: Discontinued Medications Dexamethasone (Decadron) 8 mg PO EDNOW ONE Stop: 02/27/18 18:02 Last Admin: 02/27/18 18:06 Dose: 8 mg Hydromorphone HCl (Dilaudid) 2 mg PO EDNOW ONE Stop: 02/27/18 18:02 Last Admin: 02/27/18 18:06 Dose: 2 mg Promethazine HCl (Phenergan) 25 mg PO EDNOW ONE Stop: 02/27/18 18:28 Last Admin: 02/27/18 18:29 Dose: 25 mg Departure - Departure Disposition: Home, Routine, Self-Care Clinical Impression: Cervical radiculopathy Condition: Good Instructions: Cervical Radiculopathy (ED), Neck Pain (ED) Additional Instructions: 1. Please follow up with her primary care doctor. 2. Return emergency room if you have worsening pain 3. Steroids as prescribed. 4. Be careful about home many narcotic pills you take as this can make you constipated also can make you sleepy and can cause breathing problems. Referrals: VINCENT MINA [Primary Care Provider] - As per Instructions Prescriptions: Dexamethasone [Decadron 4 MG (*)] 6 mg PO DAILY #4 tab HYDROmorphone HCL [Dilaudid 2 mg (*)] 2 mg PO BID #7 tab
[2018-02-27] MEDS ORDERED: HYDROmorphONE/DILAUDID 2 MG TAB PO ONE (18:01)
[2018-02-27] MEDS ORDERED: DEXAMETHASONE 4 MG TAB PO ONE (18:01)
[2018-02-27 18:16] VITALS: RESP 20; TEMP 98.1; O2SAT 92
[2018-02-27] MEDS ORDERED: PROMETHAZINE HCL 25 MG TAB PO ONE (18:27)
[2018-02-27] MEDS ORDERED: HYDROmorphONE/DILAUDID 2 MG/ML INJ IM ONE (19:17)
[2018-02-27 19:46] VITALS: BP 186/78; PULSE 95
== END 2018-02-27 19:45 | disposition home or self-care (01) ==
LOC: CED 17:47
DX: M54.12 Radiculopathy, cervical region (principal); Z79.01 Long term (current) use of anticoagulants
CPT/HCPCS: 96372; 99284; J1170

== ENCOUNTER → 2018-03-20 | Outpatient (CLI) | payer OTHER | LOC: FIMAGING 14:17 | PROVIDERS: ATTEND Physician Assistant Surgical | DX: M54.2 Cervicalgia (principal); Z98.1 Arthrodesis status ==

== ENCOUNTER 2018-04-03 21:46 | Observation (INO) | payer OTHER ==
--- NOTE | 2018-04-03 22:09 | CPEKG ---
Heart Rate: 97 RR Interval: 619 P-R Interval: 156 QRSD Interval: 96 QT Interval: 392 QTC Interval: 498 P Kinsman: 101 QRS Kinsman: -78 T Wave Kinsman: 105 EKG Severity - ABNORMAL ECG - EKG Impression: SINUS RHYTHM EKG Impression: MULTIPLE VENTRICULAR PREMATURE COMPLEXES EKG Impression: PROBABLE LEFT ATRIAL ABNORMALITY EKG Impression: LVH WITH SECONDARY REPOLARIZATION ABNORMALITY EKG Impression: PROBABLE INFERIOR INFARCT, OLD EKG Impression: BORDERLINE PROLONGED QT INTERVAL Electronically Signed By: Kunal Sun 04-Apr-2018 06:17:04
--- NOTE | 2018-04-03 22:26 | EDPHY ---
H & P Stated Complaint: Increased HR, Decreased BP - Told to come in by endless belt finisher Time Seen by Provider: 04/03/18 22:09 HPI/ROS: Chief Complaint: Palpitations, increased heart rate, fatigue, low blood pressure HPI: 67-year-old male with a very extensive medical history including a aortic dissection status post repair and aortic valve replacement. Patient has also had atrial fibrillation/flutter and underwent a partial ablation a year ago. He states they were unable to do a complete ablation because he has an IVC filter in place after he had a spontaneous subdermal bleed due to his anticoagulation. For the past several days patient has been having episodes of fatigue and feeling generally unwell. At this point he is checking his blood pressure and notes that it is been below 100 systolic. He is also noting that his heart rate is going up to the 140s. He says that his blood pressure monitor states that his heart rate has been 40, however he believes that it is much higher than this and is just not picking up. He called and spoke with his endless belt finisher, Dr. Matos this evening and was instructed to come to the hospital for further evaluation. He denies any fevers or chills. No chest pain. Some mild shortness of breath associated with these episodes. No nausea or vomiting. ROS: 10 point Review of Systems is negative except as noted in the HPI. Social History: No smoking, no alcohol, no recreational drug use Family History: non-contributory Physical Exam: Gen: Awake, Alert, No Distress HEENT: Nose: no rhinorrhea Eyes: PERRLA, EOMI Mouth: Moist mucosa Neck: Supple, no JVD Chest: nontender, lungs clear to auscultation Heart: Abnormal S1, S2, artificial valve click, 2 in 6 systolic murmur Abd: Soft, non-tender, no guarding Back: no CVA tenderness, no midline tenderness Ext: no edema, non-tender Skin: no rash Neuro: CN II-XII intact, Sensation grossly intact, Strength 5/5 in bilateral upper and lower extremities - Personal History Current Tetanus/Diphtheria Vaccine: No Current Tetanus Diphtheria and Acellular Pertussis (TDAP): No Tetanus Vaccine Date: ALLERGY - Medical/Surgical History Hx Asthma: No Hx Chronic Respiratory Disease: No Hx Diabetes: No Hx Cardiac Disease: Yes Hx Renal Disease: No Hx Cirrhosis: No Hx Alcoholism: No Hx HIV/AIDS: No Hx Splenectomy or Spleen Trauma: No Other PMH: a fib/flutter, aortic valve replacement and aortic root graft, aortic dissection and grafting, cardiac ablation, chronic dizziness and nausea. 3 L of oxygen at baseline - Social History Smoking Status: Never smoked Constitutional: Initial Vital Signs Temperature (C) 37.1 C 04/03/18 21:50 Heart Rate 99 04/03/18 21:50 Respiratory Rate 20 04/03/18 21:50 Blood Pressure 122/71 H 04/03/18 21:50 O2 Sat (%) 94 04/03/18 21:50 O2 Delivery Mode Room Air O2 (L/minute) 4 Allergies/Adverse Reactions: Tetanus Vaccines and Toxoid [Tetanus] Allergy (Intermediate, Verified 02/27/18 18:09) zolpidem tartrate [From Ambien] Allergy (Intermediate, Verified 02/27/18 18:09) Other-Enter Comments Home Medications: Medication Instructions Recorded Promethazine HCl [Phenergan 25mg 08/03/16 (*)] Sulfamethox/Tmp 800/160 mg 08/03/16 [Bactrim DS] buPROPion XL [Wellbutrin 150mg XL] 08/03/16 oxyCODONE IR [Oxycodone Ir (*)] 08/03/16 Folic Acid 05/27/17 Furosemide 05/27/17 Lunesta 05/27/17 Metolazone 05/27/17 Ondansetron 05/27/17 Pantoprazole Sodium 05/27/17 Potassium 05/27/17 Ranitidine HCl 05/27/17 Sotalol HCl [Betapace 80 MG (*)] 05/27/17 Warfarin Sodium [Coumadin 7.5MG 05/27/17 (*)] Docusate Sodium [Colace 100 MG (*)] 100 mg PO BID #30 cap 07/07/17 Sertraline HCl 07/07/17 Dexamethasone [Decadron 4 MG (*)] 6 mg PO DAILY #4 tab 02/27/18 HYDROmorphone HCL [Dilaudid 2 mg 2 mg PO BID #7 tab 02/27/18 (*)] Medical Decision Making - Diagnostics EKG Interpretation: ECG time 10:07 p.m., sinus rhythm with a rate of 97, some unspecified left atrial abnormality, left axis deviation, LVH with secondary repolarization abnormality. Multiple PVCs. ECG is unchanged from 02/08/2017. Imaging Results: Imaging Impressions Chest X-Ray 04/03/18 22:22 Impression: Nothing acute identified. ED Course/Re-evaluation: 67-year-old male presenting with intermittent fatigue, weakness and palpitations. Patient was sent in by his endless belt finisher. His ECG is unchanged from prior. He does have a mildly borderline troponin 0.036. Remainder is evaluations unremarkable. I have discussed with his endless belt finisher, Dr. Matos. He is suggesting the patient be admitted for cardiac monitoring overnight given the patient's history of atrial fibrillation/flutter. I have discussed with Dr. Wei, hospitalist. He will admit to his service for further evaluation. - Data Points Laboratory Results: Laboratory Results 04/03/18 20:15 04/03/18 20:15 04/03/18 04/03/18 04/03/18 20:15 20:15 20:15 WBC 7.23 10^3/uL 10^3/uL (3.80-9.50) RBC 3.90 10^6/uL L 10^6/uL (4.40-6.38) Hgb 13.3 g/dL L g/dL (13.7-17.5) Hct 39.5 % L % (40.0-51.0) MCV 101.3 fL H fL (81.5-99.8) MCH 34.1 pg pg (27.9-34.1) MCHC 33.7 g/dL g/dL (32.4-36.7) RDW 19.2 % H % (11.5-15.2) Plt Count 136 10^3/uL L 10^3/uL (150-400) MPV 10.0 fL fL (8.7-11.7) Neut % (Auto) 94.1 % H % (39.3-74.2) Lymph % (Auto) 3.0 % L % (15.0-45.0) Falls % (Auto) 2.5 % L % (4.5-13.0) Eos % (Auto) 0.1 % L % (0.6-7.6) Baso % (Auto) 0.0 % L % (0.3-1.7) Nucleat RBC Rel Count 0.3 % H % (0.0-0.2) Absolute Neuts (auto) 6.80 10^3/uL H 10^3/uL (1.70-6.50) Absolute Lymphs (auto) 0.22 10^3/uL L 10^3/uL (1.00-3.00) Absolute Monos (auto) 0.18 10^3/uL L 10^3/uL (0.30-0.80) Absolute Eos (auto) 0.01 10^3/uL L 10^3/uL (0.03-0.40) Absolute Basos (auto) 0.00 10^3/uL L 10^3/uL (0.02-0.10) Absolute Nucleated RBC 0.02 10^3/uL H 10^3/uL (0-0.01) Immature Gran % 0.3 % % (0.0-1.1) Seg Neutrophils % Cancelled Band Neutrophils % Cancelled Lymphocytes % Cancelled Monocytes % Cancelled Eosinophils % Cancelled Basophils % Cancelled Metamyelocytes % Cancelled Myelocytes % Cancelled Promyelocytes % Cancelled Blast Cells % Cancelled Megakaryocytes % Cancelled Immature Gran # 0.02 10^3/uL 10^3/uL (0.00-0.10) Absolute Seg Neuts Cancelled Absolute Band Neuts Cancelled Absolute Lymphocytes Cancelled Absolute Monocytes Cancelled Absolute Eosinophils Cancelled Absolute Basophils Cancelled Absolute Metamyelocyte Cancelled Absolute Myelocytes Cancelled Absolute Promyelocytes Cancelled Absolute Plasma Cells Cancelled Nucleated RBCs Cancelled RBC/WBC/PLT Morphology TNP Absolute Blast Cells Cancelled Plasma Cells % Cancelled Platelet Estimate DECREASED L (ADEQ) Clumped Platelets Cancelled Microcytic Cells 1+ H Spherocytes 1+ H Oval Macrocytes 2+ H PT 20.5 SEC H SEC (12.0-15.0) INR 1.75 H (0.83-1.16) APTT 24.6 SEC SEC (23.0-38.0) Sodium 140 mEq/L mEq/L (135-145) Potassium 3.7 mEq/L mEq/L (3.5-5.2) Chloride 95 mEq/L L mEq/L (97-110) Carbon Dioxide 33 mEq/l H mEq/l (22-31) Anion Gap 12 mEq/L mEq/L (8-16) BUN 22 mg/dL mg/dL (7-23) Creatinine 0.9 mg/dL mg/dL (0.7-1.3) Estimated GFR > 60 Glucose 233 mg/dL H mg/dL (70-100) Calcium 8.5 mg/dL mg/dL (8.5-10.4) Troponin I 0.036 ng/mL H ng/mL (0.000-0.034) Departure - Departure Disposition: [facility] Inpatient Acute Clinical Impression: Palpitations, Weakness Condition: Fair Referrals: NONE *PRIMARY CARE P,. [Primary Care Provider] - As per Instructions
[2018-04-03 22:28] LABS: PLATELET COUNT 136 10^3/uL (150-400)
[2018-04-03 23:29] LABS: INR 1.75 (0.83-1.16); PROTIME(PATIENT) 20.5 SEC (12.0-15.0)
[2018-04-04] MEDS ORDERED: ACETAMINOPHEN 325 MG TAB PO PRN (00:18)
[2018-04-04] MEDS ORDERED: ONDANSETRON DISINTEGRATING 4 MG TAB PO PRN ×2 (00:18→16:47)
[2018-04-04] MEDS ORDERED: ONDANSETRON 4 MG/2 ML VIAL IVP PRN (00:18)
[2018-04-04] MEDS ORDERED: traZODone 50 MG TAB PO PRN (00:40)
[2018-04-04] MEDS ORDERED: WARFARIN SODIUM 7.5 MG TAB PO ONE (00:42)
[2018-04-04] MEDS ORDERED: SOTALOL HCL 80 MG TAB PO ONE (00:42)
--- NOTE | 2018-04-04 01:00 | PDGENHP ---
History and Physical - Chief Complaint Palpitations - History of Present Illness 67 yo M w/ hx of Afib/flutter, bicuspid AV s/p mAVR, and DJD presents with fatigue. Patient has a myriad of complaints. He states over the last 2 weeks he has felt fatigued as well as increased neck and shoulder pain. Additionally, he states his HR has been higher than usual and he has experienced increased palpitations. He denies any specific symptoms of infection including fever, chills, cough, and diarrhea. He has been compliant with his medications including sotalol, warfarin, and diuretic therapy. He spoke to Dr. Matos today who asked him to come to the ED for overnight telemetry monitoring. History Information - Allergies/Home Medication List Allergies/Adverse Reactions: Tetanus Vaccines and Toxoid [Tetanus] Allergy (Intermediate, Verified 02/27/18 18:09) zolpidem tartrate [From Ambien] Allergy (Intermediate, Verified 02/27/18 18:09) Other-Enter Comments Home Medications: Promethazine HCl [Phenergan 25mg (*)] 08/03/16 [Last Taken Unknown] Sulfamethox/Tmp 800/160 mg [Bactrim DS] 08/03/16 [Last Taken 02/08/17] buPROPion XL [Wellbutrin 150mg XL] 08/03/16 [Last Taken 02/06/17] oxyCODONE IR [Oxycodone Ir (*)] 08/03/16 [Last Taken 02/06/17] Folic Acid 05/27/17 [Last Taken Unknown] Furosemide 05/27/17 [Last Taken Unknown] Lunesta 05/27/17 [Last Taken Unknown] Metolazone 05/27/17 [Last Taken Unknown] Ondansetron 05/27/17 [Last Taken Unknown] Pantoprazole Sodium 05/27/17 [Last Taken Unknown] Potassium 05/27/17 [Last Taken Unknown] Ranitidine HCl 05/27/17 [Last Taken Unknown] Sotalol HCl [Betapace 80 MG (*)] 05/27/17 [Last Taken Unknown] Warfarin Sodium [Coumadin 7.5MG (*)] 05/27/17 [Last Taken Unknown] Sertraline HCl 07/07/17 [Last Taken Unknown] I have personally reviewed and updated: family history, medical history - Past Medical History atrial fibrillation Additional medical history: RECURRING STAPH INFECTIONS ON CHRONIC PROPHYLAXIS - Surgical History Additional surgical history: 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, Atrial fibrillation flutter on anticoagulated,, subdural hematoma the setting of anticoagulation, coronary artery disease status post [place], chronic back pain, 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, nephrolithiasis, a gastric ulceration, 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 - Family History Positive for: cancer - Social History Smoking Status: Never smoked Review of Systems Review of Systems: ROS: 10pt was reviewed & negative except for what was stated in HPI & below Physical Exam Physical Exam: Temp Pulse Resp BP Pulse Ox 37.1 C 93 16 120/73 93 04/03/18 21:50 04/04/18 00:16 04/04/18 00:16 04/04/18 00:16 04/04/18 00:16 Constitutional: chronically ill appearing, obese Eyes: PERRL, EOMI Ears, Nose, Mouth, Throat: moist mucous membranes, no oral mucosal ulcers Cardiovascular: regular rate and rhythym, systolic murmur Respiratory: no respiratory distress, clear to auscultation Gastrointestinal: normoactive bowel sounds, soft, non-tender abdomen Skin: warm, normal color Neurologic: AAOx3, CN II-XII Intact Psychiatric: interacting appropriately, not anxious Lab Data & Imaging Review 04/03/18 20:15 04/03/18 20:15 WBC 7.23 10^3/uL (3.80-9.50) 04/03/18 20:15 RBC 3.90 10^6/uL (4.40-6.38) L 04/03/18 20:15 Hgb 13.3 g/dL (13.7-17.5) L 04/03/18 20:15 Hct 39.5 % (40.0-51.0) L 04/03/18 20:15 MCV 101.3 fL (81.5-99.8) H 04/03/18 20:15 MCH 34.1 pg (27.9-34.1) 04/03/18 20:15 MCHC 33.7 g/dL (32.4-36.7) 04/03/18 20:15 RDW 19.2 % (11.5-15.2) H 04/03/18 20:15 Plt Count 136 10^3/uL (150-400) L 04/03/18 20:15 MPV 10.0 fL (8.7-11.7) 04/03/18 20:15 Neut % (Auto) 94.1 % (39.3-74.2) H 04/03/18 20:15 Lymph % (Auto) 3.0 % (15.0-45.0) L 04/03/18 20:15 Yell % (Auto) 2.5 % (4.5-13.0) L 04/03/18 20:15 Eos % (Auto) 0.1 % (0.6-7.6) L 04/03/18 20:15 Baso % (Auto) 0.0 % (0.3-1.7) L 04/03/18 20:15 Nucleat RBC Rel Count 0.3 % (0.0-0.2) H 04/03/18 20:15 Absolute Neuts (auto) 6.80 10^3/uL (1.70-6.50) H 04/03/18 20:15 Absolute Lymphs (auto) 0.22 10^3/uL (1.00-3.00) L 04/03/18 20:15 Absolute Monos (auto) 0.18 10^3/uL (0.30-0.80) L 04/03/18 20:15 Absolute Eos (auto) 0.01 10^3/uL (0.03-0.40) L 04/03/18 20:15 Absolute Basos (auto) 0.00 10^3/uL (0.02-0.10) L 04/03/18 20:15 Absolute Nucleated RBC 0.02 10^3/uL (0-0.01) H 04/03/18 20:15 Immature Gran % 0.3 % (0.0-1.1) 04/03/18 20:15 Seg Neutrophils % Cancelled 04/03/18 20:15 Band Neutrophils % Cancelled 04/03/18 20:15 Lymphocytes % Cancelled 04/03/18 20:15 Monocytes % Cancelled 04/03/18 20:15 Eosinophils % Cancelled 04/03/18 20:15 Basophils % Cancelled 04/03/18 20:15 Metamyelocytes % Cancelled 04/03/18 20:15 Myelocytes % Cancelled 04/03/18 20:15 Promyelocytes % Cancelled 04/03/18 20:15 Blast Cells % Cancelled 04/03/18 20:15 Megakaryocytes % Cancelled 04/03/18 20:15 Immature Gran # 0.02 10^3/uL (0.00-0.10) 04/03/18 20:15 Absolute Seg Neuts Cancelled 04/03/18 20:15 Absolute Band Neuts Cancelled 04/03/18 20:15 Absolute Lymphocytes Cancelled 04/03/18 20:15 Absolute Monocytes Cancelled 04/03/18 20:15 Absolute Eosinophils Cancelled 04/03/18 20:15 Absolute Basophils Cancelled 04/03/18 20:15 Absolute Metamyelocyte Cancelled 04/03/18 20:15 Absolute Myelocytes Cancelled 04/03/18 20:15 Absolute Promyelocytes Cancelled 04/03/18 20:15 Absolute Plasma Cells Cancelled 04/03/18 20:15 Nucleated RBCs Cancelled 04/03/18 20:15 RBC/WBC/PLT Morphology TNP 04/03/18 20:15 Absolute Blast Cells Cancelled 04/03/18 20:15 Plasma Cells % Cancelled 04/03/18 20:15 Platelet Estimate DECREASED (ADEQ) L 04/03/18 20:15 Clumped Platelets Cancelled 04/03/18 20:15 Microcytic Cells 1+ H 04/03/18 20:15 Spherocytes 1+ H 04/03/18 20:15 Oval Macrocytes 2+ H 04/03/18 20:15 PT 20.5 SEC (12.0-15.0) H 04/03/18 20:15 INR 1.75 (0.83-1.16) H 04/03/18 20:15 APTT 24.6 SEC (23.0-38.0) 04/03/18 20:15 Sodium 140 mEq/L (135-145) 04/03/18 20:15 Potassium 3.7 mEq/L (3.5-5.2) 04/03/18 20:15 Chloride 95 mEq/L (97-110) L 04/03/18 20:15 Carbon Dioxide 33 mEq/l (22-31) H 04/03/18 20:15 Anion Gap 12 mEq/L (8-16) 04/03/18 20:15 BUN 22 mg/dL (7-23) 04/03/18 20:15 Creatinine 0.9 mg/dL (0.7-1.3) 04/03/18 20:15 Estimated GFR > 60 04/03/18 20:15 Glucose 233 mg/dL (70-100) H 04/03/18 20:15 Calcium 8.5 mg/dL (8.5-10.4) 04/03/18 20:15 Troponin I 0.036 ng/mL (0.000-0.034) H 04/03/18 20:15 Imaging Review: Imaging Impressions Chest X-Ray 04/03/18 22:22 Impression: Nothing acute identified. Visualized and Interpreted Chest x-ray results: Yes Chest X-Ray results: no infiltrate Visualized and Interpreted EKG results: Yes EKG Interpretation: Positive for: other (Sinus rhythm, frequent PVCs) Assessment & Plan Assessment: 67 yo M w/ hx of Afib/flutter, bicuspid AV s/p mAVR, and DJD presents with palpitations. Plan: 1. Palpitations - Sinus rhythm with frequent PVCs noted on initial ECG and on monitor during my evaluation. Patient states his home monitor was detecting occasional rates in the 140's so Dr. Matos recommended he come in for monitoring. - Admit to PCU for observation - Monitor on telemetry - Dr. Matos consulted, appreciate assistance - Discussed case with Dr. Sun 2. Hx Afib/flutter - Has had prior ablation but this was incomplete due to existing IVC filter. - Continue sotalol 3. Hx of bicuspid AV - s/p mechanical AVR. - INR 1.75 on admission - Will bridge with Lovenox until therapeutic - Pharmacy to dose warfarin order placed 4. DJD, chronic pain - Continue oxycodone PRN 5. Recurring Staph infections - Takes daily Bactrim for this. Diet - Regular Code - Full Ppx - Warfarin, Lovenox Dispo - Admit to PCU under observation status
[2018-04-04] MEDS: ENOXAPARIN 100 MG/ML SYR SC SCH ×3 (01:08→21:24)
[2018-04-04] MEDS ORDERED: SULFAMETHOX/TMP 800/160 MG 1 TAB PO ONE (01:08)
[2018-04-04] MEDS: oxyCODONE IR 5 MG TAB PO PRN ×4 (01:43→16:02)
[2018-04-04 06:08] LABS: PLATELET COUNT 130 10^3/uL (150-400)
[2018-04-04 06:19] LABS: INR 1.8 (0.83-1.16)
[2018-04-04] MEDS: WARFARIN SODIUM 7.5 MG TAB PO SCH (16:02)
[2018-04-04] MEDS ORDERED: PROMETHAZINE HCL 25 MG TAB PO PRN (16:47)
[2018-04-04] MEDS: predniSONE 10 MG TAB PO SCH (17:15)
[2018-04-04] MEDS: FUROSEMIDE 40 MG TAB PO SCH (17:15)
[2018-04-04] MEDS: KETOROLAC 15 MG/1 ML SDV IVP SCH (17:15)
[2018-04-04] MEDS: GABAPENTIN 100 MG CAP PO SCH ×2 (17:16→21:24)
--- NOTE | 2018-04-04 17:35 | GCON ---
[f rep st] CONSULTATION DATE OF CONSULTATION: 04/04/2018 PRIMARY CARDIOLOGISTS: Ernie Sanchez MD, and Dax Matos MD. CHIEF COMPLAINT: Palpitations. HISTORY OF PRESENT ILLNESS: We were asked by Dr. Wei to visit with this patient. The patien malissa is a 67-year-old male with a history of bgx-arkb-baevsjdg coronary disease based on cath in 2004 an d mechanical aortic valve replacement for bicuspid aortic valve. This included a composite root ana t. His postoperative course was complicated by mediastinitis and repeat surgery for repair of a diss ecting aortic pseudoaneurysm. Other history includes paroxysmal atrial fibrillation and atrial flutt er. The atrial flutter was ablated in 2017. He is now admitted with worsening of his chronic neck and right shoulder pain as well as abdominal co mplaints. He is also having palpitations. He describes periods where his heart rate is in the 160s. He is not having anginal-quality chest pain. He does feel mildly dyspneic and complains of abdomin al bloating. No lower extremity edema. REVIEW OF SYSTEMS: He has had chronic GI, C-spine, and right shoulder issues, for which he is workin g with specialists in the outpatient setting. No recent fevers or urinary problems. Otherwise, a fu ll 10-point review of systems is negative. ALLERGIES: Tetanus and Ambien. PAST MEDICAL HISTORY: 1. Valvular heart disease as detailed above, with mechanical aortic valve replacement. He is on chr onic warfarin therapy. 2. Tcg-noir-mohmykzy coronary artery disease. 3. Depression. 4. Exophthalmos. 5. GERD. 6. Impaired fasting glucose. 7. Kidney stones. 8. Paroxysmal atrial fibrillation and paroxysmal atrial flutter, status post flutter ablation. 9. PVCs. 10. Obstructive sleep apnea. 11. DJD of the cervical spine. 12. Chronic right shoulder pain. SURGICAL HISTORY: AVR with aortic root and in 2001 and reoperation for dissecting pseudoaneurysm of the aorta in 2005, spinal fusion, craniotomy, and laminectomy. OUTPATIENT MEDICATIONS: Sotalol, metolazone 5 mg every other day, Zofran p.r.n., Phenerga n, amoxicillin, Lunesta, folic acid, Lasix 40 mg twice daily, oxycodone, Protonix 40 mg daily, Klor-C on, prednisone 20 mg, Zantac 150 mg b.i.d., sotalol 120 mg twice daily, warfarin, and trazodone. SOCIAL HISTORY: The patient denies alcohol use. Former smoker, quit remotely. FAMILY HISTORY: Notable for diabetes, hypertension, and pulmonary embolism. PHYSICAL EXAMINATION: VITAL SIGNS: Blood pressure is 106/93, heart rate is 79, oxygen saturation is 96% on 4 L nasal cannula. He is afebrile. GENERAL: This is a chronically ill-appearing and interm ittently tearful older male. HEENT: Dentition is poor with 2 front teeth missing. Mucous membranes are moist. Sclerae are anicteric. NECK: JVP is less than 10. Carotids are equal and 2+ without br uit. CARDIAC: Regular rhythm with occasional ectopy. Soft early systolic murmur at the base. Kelly p mechanical S2. LUNGS: Clear bilaterally without wheezes, rhonchi, or rales. ABDOMEN: Obese and nondistended. Soft. No bruits. No masses or hepatosplenomegaly. He has minimal epigastric tendern ess. EXTREMITIES: Warm and well perfused without cyanosis, clubbing, or edema. NEUROLOGIC: Alert and oriented x3 without gross focal neurologic deficits. Appropriate mood and aff ect. LABORATORY DATA: White count 6.8, hematocrit 37, and platelets are 132. INR is 1.8. Sodium 138, po tassium 3.5, chloride 97, bicarb 35, BUN 21, creatinine 0.8. Troponin is initially 0.036 and upon re peat is 0.03. EKG reviewed by me and compared to his January 2018 EKG in our office shows sinus rhythm with PVCs. Le ft atrial abnormality. Delayed R-wave progression. LVH. The QT interval is 460. Inferior Q waves. No significant change compared with previous. Last echocardiogram was in 2012 showing normal LV systolic function. Mean gradient across the mechan ical aortic valve was 21 mmHg. No recent stress test. ASSESSMENT AND PLAN: This 67-year-old male with cardiac history as detailed above, was admitted [facility] with increasing neck and right shoulder pain, that have previously been extensively evaluated i n the outpatient setting. He is also complaining of palpitations. On warehouse general laborer, he has had premature ventricular contractions. 1. Palpitations: History of atrial fibrillation, atrial flutter status post ablation, and premature ventricular contractions. Rhythm here is sinus rhythm with premature ventricular contractions. He is on sotalol. Would continue his medication. Continue warfarin for both his atrial arrhythmia hist ory and his mechanical aortic valve. 2. Mechanical aortic valve: It has been 5 years since his last echocardiogram. Would obtain echoca rdiogram during this admission to reassess function of his aortic valve prosthesis which sounds padmaja l on exam. Also to evaluate the proximal portion of his ascending aorta, given his history of aortic surgery. His shoulder and neck pain are chronic and seem to be related to cervical spine disease an d musculoskeletal disease, and not acute aortic or cardiac issues. 3. Chronic pain: He is on opioids. This is a difficult issue as he has not had definitive therapy. Continue outpatient management. Thank you for allowing us to participate in this patient's care. Will follow with you. /[id number]/MODL
[2018-04-04] MEDS ORDERED: NON-FORMULARY NEW DRUG (Ranitidine Hcl [Zantac] 150 MG) PO SCH (21:00)
[2018-04-04] MEDS: SOTALOL HCL 80 MG TAB PO SCH (21:25)
[2018-04-04] MEDS: oxyCODONE IR 5 MG TAB PO SCH (21:25)
[2018-04-04] MEDS: FAMOTIDINE 20 MG TAB PO SCH (21:25)
[2018-04-05] MEDS: KETOROLAC 15 MG/1 ML SDV IVP SCH ×3 (00:31→12:33)
[2018-04-05] MEDS ORDERED: PANTOPRAZOLE SODIUM 40 MG TAB PO SCH (09:00)
[2018-04-05] MEDS ORDERED: POTASSIUM CL 10 MEQ TAB PO SCH (09:00)
[2018-04-05] MEDS ORDERED: SULFAMETHOX/TMP 800/160 MG 1 TAB PO SCH (09:00)
[2018-04-05] MEDS ORDERED: SERTRALINE HCL 50 MG TAB PO SCH (09:00)
[2018-04-05] MEDS ORDERED: FOLIC ACID 1 MG TAB PO SCH (09:00)
[2018-04-05] MEDS: FAMOTIDINE 20 MG TAB PO SCH (10:03)
[2018-04-05] MEDS: GABAPENTIN 100 MG CAP PO SCH ×2 (10:04→15:51)
[2018-04-05] MEDS: FUROSEMIDE 40 MG TAB PO SCH (10:04)
[2018-04-05] MEDS: predniSONE 10 MG TAB PO SCH (10:04)
[2018-04-05] MEDS: SOTALOL HCL 80 MG TAB PO SCH (10:05)
[2018-04-05] MEDS: oxyCODONE IR 5 MG TAB PO SCH (10:07)
[2018-04-05] MEDS: ENOXAPARIN 100 MG/ML SYR SC SCH (10:08)
--- NOTE | 2018-04-05 10:45 | ECHO ---
[email or web address] [address] [address] Main: [phone] Fax: Transthoracic Echocardiogram Name: DAVID WEISS MR#: [id number] Study Date: 04/05/2018 Study Time: 06:31 AM Date of : 1950 Age: 67 year(s) Height: 182.9 cm (72 in.) Weight: 106.6 kg (235 lb.) BSA: 2.28 m2 Gender: Male Examination: Echo Indication: MECHANICAL AVR, Chest Pain Image Quality: Technically Difficult Contrast: Requested by: Sherice Carrion BP: 123 mmHg/73 mmHg Heart Rate: Rhythm: Indication: MECHANICAL AVR, Chest Pain Procedure Staff Labeling Machine Operator: Dorinda Crouch JULIEN Reading Physician: Sherice Carrion MD Requesting Provider: Conclusions: Normal size left ventricle. Moderate concentric LV hypertrophy. Low normal left ventricular systolic function. EF is 51 %. No regional wall motion abnormality. Grade 1 diastolic dysfunction (abnormal relaxation). Normal size right ventricle. Normal RV function. The left atrium is normal in size. Mild mitral valve regurgitation is present. The aortic valve is a mechanical prosthesis.. Normal functioning aortic valve prosthesis. The mean transoartic gradient is 20 mmHg. Normal size ascending aorta measuring 2.8 cm. Small pericardial effusion. Compared with 12/26/2015 mean gradient across the aortic valve is increased. Measurements: Chambers Valvular Assessment AV/MV Valvular Assessment TV/PV Normal Normal Normal Name Value Range Name Value Range Name Value Range IVSd (2D): 1.5 cm (0.6 cm-1.1 AV meanP mmHg ( - ) TR Vmax: 2.59 mm/s ( - ) cm) SPIKE (VTI): 1.0 cm ( - ) TR PGmax: 27 mmHg ( - ) LVDd (2D): 4.6 cm (4.2 cm-5.9 MV E Vmax: 0.67 m/s ( - ) syst. PAP: 32 mmHg ( - ) cm) MV A Vmax: 0.78 m/s ( - ) PV Vmax: 1.10 m/s (0.6 m/s-0.9 LVDs (2D): 3.3 cm (2.1 cm-4 MV E/A: 0.86 ( - ) m/s) cm) MV PHT: 0.077 s ( - ) PV PGmax: 5 mmHg ( - ) LVPWd (2D): 1.4 cm (0.6 cm-1 cm) MVA (PHT): 2.9 s ( - ) LVOTd 1.9 cm 1.9 cm mm Patient: DAVID WEISS Study Date: 04/05/2018 Page 1 of 2 06:31 AM LVEF (BP): 51 % (>=55 %) RVDd(2D): 3.0 cm (1.9 cm-3.8 cmmm) Continued Measurements: Chambers Valvular Assessment AV/MV Valvular Assessment TV/PV Name Value Name Value Name Value LADs: 5.5 cm MV DecTime: 261 m/s CVP (est.): 5 mmHg LADs Lon.1 cm MV E' Septal: 0.04 m/s LA Area: 22.0 cm2 MV E/E' Septal: 15.20 LA Volume: 77 ml MV E/E' Lateral: 9.60 LA Volume Index: 33.8 ml/m2 RA Area: 19.7 cm2 Additional Vessels Name Value Ao Ascendin.8 cm Inferior Vena Cava: 1.8 cm Findings: Left Ventricle: Normal size left ventricle. Moderate concentric LV hypertrophy. Low normal left ventricular systolic function. EF is 51 %. No regional wall motion abnormality. Grade 1 diastolic dysfunction (abnormal relaxation). Right Ventricle: Normal size right ventricle. Normal RV function. Left Atrium: The left atrium is normal in size. Right Atrium: The right atrium is normal in size. Mitral Valve: The mitral valve is normal in appearance and function. Mild mitral valve regurgitation is present. No mitral stenosis is present. Aortic Valve: The aortic valve is a mechanical prosthesis.. Normal functioning aortic valve prosthesis. The mean transoartic gradient is 20 mmHg. The prosthetic aortic valve is normal. No prosthesis stenosis. Trivial prosthesis regurgitation. Patient states that mechnical prosthesis is around 15 years old. Tricuspid Valve: The tricuspid valve is normal in appearance and function. Trivial tricuspid valve regurgitation. The pulmonary artery pressure is normal. Right ventricular systolic pressure measures 32mmHg. Pulmonic Valve: The pulmonic valve is normal in appearance and function. There is no pulmonic regurgitation seen. Aorta: The aorta is normal. Normal size ascending aorta measuring 2.8 cm. IVC: The IVC is normal sized. Pericardium: Small pericardial effusion. There is pericardial fat. No pleural effusion. Exam Comments: Technically difficult due to patient body habitus. (No Signature Object) Patient: DAVID WEISS Study Date: 04/05/2018 Page 2 of 2 06:31 AM [id number]
--- NOTE | 2018-04-05 11:34 | PDCARPN ---
Cardiology Progress Note Assessment/Plan: Assessment/Plan: 67-year-old male with a history of bicuspid aortic valve status post mechanical aortic valve and aortic root replacement in 2001. This was complicated by mediastinitis. 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 He also has paroxysmal atrial fibrillation and paroxysmal atrial flutter status post atrial flutter ablation last year. He also has PVCs. He is on chronic sotalol on warfarin therapy. He was admitted on April 04 with palpitations, worsening of his chronic abdominal complaints, and worsening neck and right shoulder discomfort. 1. Neck and shoulder pain: Troponins have been negative. EKG in not ischemic. No wall motion abnormality on echo. Aortic valve is well seated. He has had an extensive outpatient evaluation of his cervical spine disc disease and musculoskeletal right shoulder pain. This is ongoing. For completeness and surveillance he will have a CT angiogram of his thoracic aorta to ensure there is no aortic pathology. 2. History of atrial arrhythmia and PVCs: No atrial arrhythmia on tele. He has occasional PVCs. His palpitations resolved. Continue sotalol. Continue warfarin. 3. Mechanical aortic valve and ascending aortic disease as detailed above: Continue warfarin. He is currently on Lovenox bridge as his INR subtherapeutic. Normally functioning aortic valve prosthesis on echo. He is stable for discharge from a cardiac standpoint after his CT aorta. Follow up with Dr. Sanchez at [facility]. 04/05/18 11:36 Subjective: Feels better today. His neuropathic pain is improved. He has no chest pressure or any mid back pressure which she was previously symptom when he had aortic pathology. No dyspnea when he is wearing his oxygen. Reviewed/Discussed With: hospitalist (Dr. Manriquez) Objective: Vital Signs (8 Hrs) Temp Pulse Resp BP Pulse Ox 04/05/18 10:05 87 109/88 H 04/05/18 08:40 36.8 C 72 12 102/65 96 04/05/18 04:00 36.7 C 80 20 123/73 H 93 Intake/Output (24 Hrs) 04/04/18 04/05/18 04/06/18 05:59 05:59 05:59 Intake Total 800 Output Total 1125 500 Balance -325 -500 Intake: Oral (ml) 800 Output: Urine (ml) 1125 500 Urinal 1125 500 Other: Weight 105.7 kg Number of Voids Urinal 1 No acute distress JVP less than 10. Regular rate and rhythm with crisp mechanical S2. Soft early systolic ejection murmur at the base. No diastolic murmur. No rub or gallop. Lungs clear to auscultation without wheeze rhonchi or rales No lower extremity edema Result Diagrams: 04/04/18 06:00 04/04/18 06:00 Cardiac Labs: Cardiac Lab Results (72 Hrs) 04/04/18 06:00 Troponin I 0.030 Telemetry: NSR. PVCs Echocardiogram: Reviewed: Normal LV systolic function without regional wall motion abnormality. Well-seated mechanical aortic valve prosthesis with a mean gradient of 20 mm of Hg and trivial aortic regurgitation. Visualized portions of the ascending aorta are normal. ICD10 Worksheet Patient Problems: Problems Problem Status Onset Tachycardia Acute Lung mass Acute Shortness of breath Acute Epistaxis Acute Hypoxia Acute Weakness Acute Atrial fibrillation with rapid ventricular response Acute Symptomatic bradycardia Acute Palpitations Acute
[2018-04-05] MEDS ORDERED: IOPAMIDOL (ISOVUE 370) 100 ML BTL IV ONE (11:58)
--- NOTE | 2018-04-05 14:18 | ASMTCMCOM ---
CM Note CM Note Notes: Chart reviewed for discharge planning purposes. 67 year old male with complex cardia history admitted for c/o fatigue and possible irregular heart rate. Per OT, HHC vs outpatient therapy indicated, PT evaluation pending. Needs TBD at this time. Plan: TBD Date Signed: 04/05/2018 02:17 PM Electronically Signed By:Annie Negro RN
--- NOTE | 2018-04-05 14:48 | HOSPPROG ---
Hospitalist Progress Note Assessment/Plan: 67 yo M w cervical spine disease, AVR here w neck pain and palpitations palpitations: tele unremarkable neck pain: improved w neurontin dispo: home today see dc summary Subjective: case d/w dr brunson. good pain relief w neurontin Objective: Vital Signs Temp Pulse Resp BP Pulse Ox 37.0 C 75 15 108/74 92 04/05/18 11:42 04/05/18 11:42 04/05/18 11:42 04/05/18 11:42 04/05/18 11:42 Laboratory Results 04/04/18 06:00 04/04/18 06:00 04/04/18 04/05/18 04/06/18 05:59 05:59 05:59 Intake Total 800 Output Total 1125 1000 Balance -325 -1000 PT 21.0 SEC (12.0-15.0) H 04/04/18 06:00 INR 1.80 (0.83-1.16) H 04/04/18 06:00 - Physical Exam Constitutional: no apparent distress, appears nourished Eyes: PERRL, anicteric sclera Ears, Nose, Mouth, Throat: moist mucous membranes, hearing normal Cardiovascular: regular rate and rhythym, no murmur, rub, or gallop Respiratory: no respiratory distress, no rales or rhonchi Gastrointestinal: normoactive bowel sounds, no palpable masses Genitourinary: no bladder fullness, No wayne in urethra Skin: warm, normal color Musculoskeletal: full muscle strength ICD10 Worksheet Patient Problems: Problems Problem Status Onset Palpitations Acute Weakness Acute Atrial fibrillation with rapid ventricular response Acute Epistaxis Acute Hypoxia Acute Lung mass Acute Shortness of breath Acute Symptomatic bradycardia Acute Tachycardia Acute
--- NOTE | 2018-04-05 14:51 | PDIAF ---
- Diagnosis Diagnosis: neck pain Code Status: Full Code - Medication Management Discharge Medications: Medications to Continue on Transfer Promethazine HCl [Phenergan 25mg (*)] 25 mg PO Q6HRS PRN 08/03/16 [Last Taken Unknown] Sulfamethox/Tmp 800/160 mg [Bactrim DS] 1 tab PO DAILY 08/03/16 [Last Taken 08/13] oxyCODONE IR [Oxycodone Ir (*)] 10 mg PO BID 08/03/16 [Last Taken 04/03/18 21:00 ] Eszopiclone [Lunesta] 3 mg PO HS 05/27/17 [Last Taken 04/02/18] Folic Acid [Folic Acid 1 MG (*)] 1 mg PO DAILY 05/27/17 [Last Taken 04/03/18] Furosemide [Lasix 40 MG (*)] 40 mg PO BID@05/27/17 [Last Taken 04/03/18 18 :00] Metolazone [Zaroxolyn 5MG (*)] 5 mg PO Q2D 05/27/17 [Last Taken 04/02/18] Ondansetron Odt [Zofran Odt 4 mg (*)] 4 mg PO Q6HRS PRN 05/27/17 [Last Taken Unknown] Pantoprazole Sodium [Protonix 40mg (*)] 40 mg PO DAILY 05/27/17 [Last Taken 08/13] Potassium Cl [Klor-Con 10 meq (RX)] 10 meq PO DAILY 05/27/17 [Last Taken ] Ranitidine HCl [Zantac] 150 mg PO BID 05/27/17 [Last Taken 04/03/18 21:00] Sotalol HCl [Betapace 80 MG (*)] 120 mg PO BID 05/27/17 [Last Taken 04/03/18] Warfarin Sodium [Coumadin 7.5MG (*)] 7.5 mg PO SUWE@16 05/27/17 [Last Taken 08/13] Amoxicillin Trihydrate [Amoxil] 500 mg PO TID 04/04/18 [Last Taken 04/03/18] Sertraline HCl [Zoloft 50mg (*)] 50 mg PO DAILY 04/04/18 [Last Taken 04/03/18] Warfarin Sodium [Coumadin 5MG (*)] 5 mg PO MOTUTHFRSA@16 04/04/18 [Last Taken ] predniSONE 20 mg PO DAILY 04/04/18 [Last Taken 04/03/18] traZODone [traZODONE 50MG (*)] 50 mg PO HS 04/04/18 [Last Taken 04/03/18] Enoxaparin [Lovenox 100 MG (*)] 100 mg SC BID #10 syr 04/05/18 [Last Taken Unknown] Gabapentin [Neurontin 300 MG (*)] 300 mg PO TID #90 cap 04/05/18 [Last Taken Unknown] Discharge Medications: Refer to the Discharge Home Medication list for PRN reason. - Orders Isolation Type: None - Labs/Radiology PT/INR Date: 04/08/18 - Follow Up Care Current Providers and Referrals: NONE *PRIMARY CARE P,. [Unknown] - As per Instructions Ernie Sanchez MD [Medical Doctor] - (2-3 weeks)
--- NOTE | 2018-04-05 14:54 | PDIAF ---
- Diagnosis Diagnosis: neck pain Code Status: Full Code - Medication Management Discharge Medications: Medications to Continue on Transfer Promethazine HCl [Phenergan 25mg (*)] 25 mg PO Q6HRS PRN 08/03/16 [Last Taken Unknown] Sulfamethox/Tmp 800/160 mg [Bactrim DS] 1 tab PO DAILY 08/03/16 [Last Taken 08/13] oxyCODONE IR [Oxycodone Ir (*)] 10 mg PO BID 08/03/16 [Last Taken 04/03/18 21:00 ] Eszopiclone [Lunesta] 3 mg PO HS 05/27/17 [Last Taken 04/02/18] Folic Acid [Folic Acid 1 MG (*)] 1 mg PO DAILY 05/27/17 [Last Taken 04/03/18] Furosemide [Lasix 40 MG (*)] 40 mg PO BID@05/27/17 [Last Taken 04/03/18 18 :00] Metolazone [Zaroxolyn 5MG (*)] 5 mg PO Q2D 05/27/17 [Last Taken 04/02/18] Ondansetron Odt [Zofran Odt 4 mg (*)] 4 mg PO Q6HRS PRN 05/27/17 [Last Taken Unknown] Pantoprazole Sodium [Protonix 40mg (*)] 40 mg PO DAILY 05/27/17 [Last Taken 08/13] Potassium Cl [Klor-Con 10 meq (RX)] 10 meq PO DAILY 05/27/17 [Last Taken ] Ranitidine HCl [Zantac] 150 mg PO BID 05/27/17 [Last Taken 04/03/18 21:00] Sotalol HCl [Betapace 80 MG (*)] 120 mg PO BID 05/27/17 [Last Taken 04/03/18] Warfarin Sodium [Coumadin 7.5MG (*)] 7.5 mg PO SUWE@16 05/27/17 [Last Taken 08/13] Amoxicillin Trihydrate [Amoxil] 500 mg PO TID 04/04/18 [Last Taken 04/03/18] Sertraline HCl [Zoloft 50mg (*)] 50 mg PO DAILY 04/04/18 [Last Taken 04/03/18] Warfarin Sodium [Coumadin 5MG (*)] 5 mg PO MOTUTHFRSA@16 04/04/18 [Last Taken ] predniSONE 20 mg PO DAILY 04/04/18 [Last Taken 04/03/18] traZODone [traZODONE 50MG (*)] 50 mg PO HS 04/04/18 [Last Taken 04/03/18] Enoxaparin [Lovenox 100 MG (*)] 100 mg SC BID #10 syr 04/05/18 [Last Taken Unknown] Gabapentin [Neurontin 300 MG (*)] 300 mg PO TID #90 cap 04/05/18 [Last Taken Unknown] Discharge Medications: Refer to the Discharge Home Medication list for PRN reason. - Orders Services needed: Home Care, Physical Therapy Home Care Face to Face: I certify that this patient was under my care and that I had the required [id number] encounter meeting the encounter requirements on the discharge day. My findings support the fact that the patient is homebound as defined in Home Care Face to Face Continued: CMS Chapter 7 Medicare Benefits Manual 30.1.1 , The condition of the patient is such that there exists a normal inability to leave home and consequently, leaving home would require a considerable and taxing effort. Isolation Type: None - Labs/Radiology PT/INR Date: 04/08/18 - Follow Up Care Current Providers and Referrals: NONE *PRIMARY CARE P,. [Unknown] - As per Instructions Ernie Sanchez MD [Medical Doctor] - (2-3 weeks)
[2018-04-05 15:05] VITALS: BP 113/62
--- NOTE | 2018-04-05 15:15 | ASMTLACE ---
LACE Length of stay for Answers: 3 days current admission Acuity / Level of Answers: Yes Care: Did the patient have an inpatient admission? Comorbidities - select Answers: Coronary Artery Disease all that apply # of Emergency department Answers: 1-2 visits in the last 6 months Score: 9 Date Signed: 04/05/2018 03:14 PM Electronically Signed By:MONTY Monson
--- NOTE | 2018-04-05 15:46 | GDS ---
[f rep st] DISCHARGE SUMMARY DISCHARGE DIAGNOSIS: 1. Palpitations. 2. History of mechanical aortic valve replacement. 3. Degenerative joint disease. Presented with complaint of fatigue and palpitations. 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 He also has recurring staph infections. He presented with palpitations and neck pain. His was followed on telemetry that was notable for PACs, otherwise unremarkable. He is on sotalol. He had an echocardiogram showing low-normal LVF with an E F of 51% with grade 1 diastolic dysfunction, normal RV function with a mean gradient across the aorti c valve of 20 mmHg, which is slightly increased from 11/2015. He also had a CTA of the aorta showing similar configured postsurgical changes of aortic root reconstruction. In speaking further, the patient seems like largely driving presenting complaints were his neck. The patient had been started on oxycodone as an outpatient. This was not escalated, but I started him o n Neurontin which he actually got a great deal of pain relief from. He is being sent home on Neuront in 300 three times daily having tolerated Neurontin 100 three times daily. He was advised that initia l dosages of Neurontin can be causing somnolence and to make choices in his plan such that he is not at risk. Additionally, the patient had a subtherapeutic INR. He is being sent home with a bridge of low-molec ular rate heparin. He has dealt with this before. He is going to get his INR checked and he has a callum johnson in [place] who will follow it. He is also asking for some home care and PT, which I have s et up. /[id number]/MODL
[2018-04-05] MEDS: WARFARIN SODIUM 7.5 MG TAB PO SCH (15:51)
--- NOTE | 2018-04-05 16:40 | ASMTCMCOM ---
CM Note CM Note Notes: CM spoke w/ Ruchi with [facility]. Ruchi reports that she cannot accept pt back at this time. Reports that they've worked w/ pt for a long time and is recommending outpatient therapy. CM communicated this info to pt. CM provided pt w/ another HH agency that accepts his insurance, [facility]. CM provided pt w/ [facility]'s business card. Pt did not want CM to make a referral. Pt would like to do some research and contact them himself. No other needs identified at this time. CM available for changes. Plan: Independent Date Signed: 04/05/2018 04:40 PM Electronically Signed By:MONTY Monson
--- NOTE | 2018-04-05 16:41 | ASDISCHSUM ---
Discharge Information Plan Status:Home with No Needs Medically Cleared to Leave:04/05/2018 Discharge Date:04/05/2018 CM D/C Disposition: ADT D/C Disposition: Projected Discharge Date:04/05/2018 11:00 AM Transportation at D/C: Discharge Delay Reason: Follow-Up Date:04/05/2018 11:00 AM Discharge Slot: Final Diagnosis: Placement Information Referral Type:*Home Health Care Services Referral ID:[id number] Provider Name: Address 1: Phone Number: Address 2: Fax Number: City: Selection Factors: State: Patient Contact Information Contact Name:HAYLEYVELIA Relationship: Address: City: [facility] Phone: [facility] Code: Email: Financial Information Financial Class:Medicare Advantage Plans Primary Plan Desc:[facility] Primary Plan Number:[id number] Secondary Plan Desc: Secondary Plan Number: Assessment Information LACE LACE Length of stay for Answers: 3 days current admission Acuity / Level of Answers: Yes Care: Did the patient have an inpatient admission? Comorbidities - select Answers: Coronary Artery Disease all that apply # of Emergency department Answers: 1-2 visits in the last 6 months Score: 9 Date Signed: 04/05/2018 03:14 PM Electronically Signed By:MONTY Monson [facility] CM Progress Note CM Note CM Note Notes: Chart reviewed for discharge planning purposes. 67 year old male with complex cardia history admitted for c/o fatigue and possible irregular heart rate. Per OT, HHC vs outpatient therapy indicated, PT evaluation pending. Needs TBD at this time. Plan: TBD Date Signed: 04/05/2018 02:17 PM Electronically Signed By:Annie Negro RN Case Management Discharge Plan Note Case Management Discharge Discharge Order Complete? Answers: Yes Patient to Obtain Answers: via Family Medications Transportation Arranged Answers: Family/Friends EMTALA Complete Answers: No Case Management Transport Answers: No Form Complete Faxed Final Orders Answers: Yes Agency/Facility Transfer Answers: Yes Report Printed & Faxed to Receiving Agency Family Notified Answers: No Discharge Comments Notes: spoke w/ Dr. Manriquez and HERNAN Armstrong regarding d/c POC. Pt is being discharged today. CM met w/ pt for dispo planning. Pt would like to continue w/ [facility] with PT. Pt reports that he does not need other services at this time. CM provided pt w/ a list of non skilled HC. DC orders sent to [facility]. CM available for changes. Plan: [facility], PT Date Signed: 04/05/2018 03:13 PM Electronically Signed By:MONTY Monson [facility] Progress Note JUANY Note CM Note Notes: JUANY spoke w/ Ruchi with [facility]. Ruchi reports that she cannot accept pt back at this time. Reports that they've worked w/ pt for a long time and is recommending outpatient therapy. JUANY communicated this info to pt. CM provided pt w/ another agency that accepts his insurance, [facility]. CM provided pt w/ [facility]'s business card. Pt did not want CM to make a referral. Pt would like to do some research and contact them himself. No other needs identified at this time. CM available for changes. Plan: Independent Date Signed: 04/05/2018 04:40 PM Electronically Signed By:MONTY Monson Intervention Information
[2018-04-06] MEDS ORDERED: METOLAZONE 5 MG TAB PO SCH (09:00)
== END 2018-04-05 18:10 | disposition home or self-care (01) ==
LOC: F2W 04-04 12:35
PROVIDERS: ADMIT Student in an Organized Health Care Education/Training Program; ATTEND Student in an Organized Health Care Education/Training Program
DX: M54.2 Cervicalgia (principal); R00.2 Palpitations; J92.9 Pleural plaque without asbestos; J98.11 Atelectasis; Z95.2 Presence of prosthetic heart valve
CPT/HCPCS: 71046; 71275; 93005; 93306; 97166; 99285; G0378; G8987; G8988; J1650; J1885; J7512; Q9967

== ENCOUNTER 2018-08-15 00:28 | Emergency (ER) | payer OTHER ==
[2018-08-15] MEDS ORDERED: MAGNESIUM SULF 2 GM/WATER 50 ML IV ONE (01:06)
[2018-08-15] MEDS ORDERED: POTASSIUM CL 20 MEQ TAB PO ONE (01:06)
[2018-08-15] MEDS ORDERED: POTASSIUM Cl (KCl) 100 ML IV SCH (01:30)
[2018-08-15] MEDS ORDERED: POTASSIUM CL 20 MEQ/15 ML UDCUP ONE (01:44)
[2018-08-15 02:07] LABS: PLATELET COUNT 148 10^3/uL (150-400)
--- NOTE | 2018-08-15 03:22 | EDPHY ---
H & P Stated Complaint: sent from Dr. gardner office for k of 2.4 Time Seen by Provider: 08/15/18 00:37 HPI/ROS: CHIEF COMPLAINT: [ Hyperkalemia, sent from the office] HISTORY OF PRESENT ILLNESS: This medically complicated 68-year-old male had a outpatient laboratories test done this afternoon as part of a preop workup for a pending lumbar surgery. Evidently his potassium was critically low at 2.4 any sent in for evaluation and K+ repletment. He states he has had prior low potassiums in the past and does take potassium supplementation and has been compliant with his regimen. He denies any GI loss being vomiting or diarrhea. He does note that he has felt unusually fatigued of late. He has not had any shortness of breath that has been untreated the past for congestive heart failure. He denies any peripheral edema. In addition, he has not felt presyncopal. He is experiencing no pain. REVIEW OF SYSTEMS: Constitutional: No fever, no chills. Eyes: No discharge ENT: No sore throat. Cardiovascular: No chest pain, no palpitations. Respiratory: No cough, shortness of breath, or wheezing. Gastrointestinal: No nausea vomiting or diarrhea. No abdominal pain. Genitourinary: No hematuria or frequency. Musculoskeletal: No back pain. Skin: No rashes. Neurological: No headache. A 10 system review of systems was performed and is negative except for the noted findings in the HPI. Source: Patient - Personal History Current Tetanus Diphtheria and Acellular Pertussis (TDAP): Unsure Tetanus Vaccine Date: ALLERGY - Medical/Surgical History Hx Asthma: No Hx Chronic Respiratory Disease: No Hx Diabetes: No Hx Cardiac Disease: Yes Hx Renal Disease: No Hx Cirrhosis: No Hx Alcoholism: No Hx HIV/AIDS: No Hx Splenectomy or Spleen Trauma: No Other PMH: a fib/flutter, aortic valve replacement and aortic root graft, aortic dissection and grafting, cardiac ablation, chronic dizziness and nausea. 3 L of oxygen at baseline, CHF - Social History Smoking Status: Never smoked Alcohol Use: None Drug Use: None - Physical Exam Exam: General Appearance: Alert, no distress. Afebrile. Normal phonation. No respiratory distress. Eyes: Pupils equal and round no pallor or injection. No icterus ENT, Mouth: Mucous membranes slightly dry Pharynx without erythema or exudate. TM Clear. Neck: No adenopathy. Supple. No JVD. Trachea in midline. Respiratory: There are no retractions, lungs are clear to auscultation. Cardiovascular: Regular rate and rhythm, mechanical heart tones. Abdomen: Soft and nontender, no masses, bowel sounds normal. He has 2 areas of ecchymosis, 5 and 6 cm each, on the lateral abdomen on the right that he attributes to his Coumadin level.. Neurological: Ox3. No motor weakness. Sensation intact. Gait nl. Skin: Warm and dry, no rashes. Musculoskeletal: No joint swelling. Extremities: No edema. Homans sign negative. No cords. Psychiatric: Normal affect. Patient is oriented X 3. Constitutional: Initial Vital Signs Temperature (C) 36.6 C 08/15/18 00:39 Heart Rate 96 08/15/18 00:39 Respiratory Rate 18 08/15/18 00:39 Blood Pressure 142/88 H 08/15/18 00:39 O2 Sat (%) 94 08/15/18 00:39 O2 Delivery Mode Nasal Cannula O2 (L/minute) 4 Allergies/Adverse Reactions: Tetanus Vaccines and Toxoid [Tetanus] Allergy (Intermediate, Verified 02/27/18 18:09) zolpidem tartrate [From Ambien] Allergy (Intermediate, Verified 02/27/18 18:09) Other-Enter Comments Home Medications: Medication Instructions Recorded Promethazine HCl [Phenergan 25mg 25 mg PO Q6HRS PRN 08/03/16 (*)] Sulfamethox/Tmp 800/160 mg 1 tab PO DAILY 08/03/16 [Bactrim DS] oxyCODONE IR [Oxycodone Ir (*)] 10 mg PO BID 08/03/16 Eszopiclone [Lunesta] 3 mg PO HS 05/27/17 Folic Acid [Folic Acid 1 MG (*)] 1 mg PO DAILY 05/27/17 Furosemide [Lasix 40 MG (*)] 40 mg PO BID@05/27/17 Metolazone [Zaroxolyn 5MG (*)] 5 mg PO Q2D 05/27/17 Ondansetron Odt [Zofran Odt 4 mg 4 mg PO Q6HRS PRN 05/27/17 (*)] Pantoprazole Sodium [Protonix 40mg 40 mg PO DAILY 05/27/17 (*)] Potassium Cl [Klor-Con 10 meq (RX)] 10 meq PO DAILY 05/27/17 Ranitidine HCl [Zantac] 150 mg PO BID 05/27/17 Sotalol HCl [Betapace 80 MG (*)] 120 mg PO BID 05/27/17 Warfarin Sodium [Coumadin 7.5MG 7.5 mg PO SUWE@16 05/27/17 (*)] Amoxicillin Trihydrate [Amoxil] 500 mg PO TID 04/04/18 Sertraline HCl [Zoloft 50mg (*)] 50 mg PO DAILY 04/04/18 Warfarin Sodium [Coumadin 5MG (*)] 5 mg PO MOTUTHFRSA@16 04/04/18 predniSONE 20 mg PO DAILY 04/04/18 traZODone [traZODONE 50MG (*)] 50 mg PO HS 04/04/18 Enoxaparin [Lovenox 100 MG (*)] 100 mg SC BID #10 syr 04/05/18 Gabapentin [Neurontin 300 MG (*)] 300 mg PO TID #90 cap 04/05/18 Medical Decision Making - Diagnostics EKG Interpretation: EKG: Sinus rhythm with tachycardia. QTC is prolonged at 589 versus his baseline QTC of 498 from this past March. Interpreted by me contemporaneously ED Course/Re-evaluation: Upon arrival IV was established and we initiated: potassium supplementation 10 mEq per hour x2 hours. He is also given p.o. 40 mEq of potassium. Further he received 2 gm of IV MagSulfate. His EKG showed baseline to be unchanged from past except for his prolonged QT of 589 verses 498 this past March. He has sinus tachycardia with LVH. His initial point of care labs were compared to a laboratory values sent down to the [facility] main lab.: Point of care potassium 3.0 verses the laboratory study of 2.5. Creatinine 1.3 verses a baseline this past summer of 0.9 CO2 elevated at 40 verses a usually normal 1. Magnesium 1.8 I discussed the case with the [facility] hospitalist. Concern for his hypokalemia requiring extensive replacement in particular in view of his elevated prolonged QT from baseline. Thus the patient will be transferred via [facility] to [facility]: Dr. Hazel as the family doctor who ordered the outpatient laboratory testing today that led to his visit as noted above. He will be admitted to the telemetry floor while he continues IV infusion. Differential Diagnosis: Diagnostic considerations include, but are not limited to, the following: Weakness, acute kidney injury, congestive heart failure, decompensated CHF, Hyperkalemia - Data Points Laboratory Results: Laboratory Results 08/15/18 00:55 08/15/18 00:55 08/15/18 08/15/18 08/15/18 01:02 00:55 00:55 WBC 7.31 10^3/uL 10^3/uL (3.80-9.50) RBC 4.24 10^6/uL L 10^6/uL (4.40-6.38) Hgb 14.5 g/dL g/dL (13.7-17.5) Hct 42.0 % % (40.0-51.0) MCV 99.1 fL fL (81.5-99.8) MCH 34.2 pg H pg (27.9-34.1) MCHC 34.5 g/dL g/dL (32.4-36.7) RDW 13.1 % % (11.5-15.2) Plt Count 148 10^3/uL L 10^3/uL (150-400) MPV 11.2 fL fL (8.7-11.7) Neut % (Auto) 84.6 % H % (39.3-74.2) Lymph % (Auto) 6.3 % L % (15.0-45.0) [place] % (Auto) 8.5 % % (4.5-13.0) Eos % (Auto) 0.1 % L % (0.6-7.6) Baso % (Auto) 0.1 % L % (0.3-1.7) Nucleat RBC Rel Count 0.0 % % (0.0-0.2) Absolute Neuts (auto) 6.18 10^3/uL 10^3/uL (1.70-6.50) Absolute Lymphs (auto) 0.46 10^3/uL L 10^3/uL (1.00-3.00) Absolute Monos (auto) 0.62 10^3/uL 10^3/uL (0.30-0.80) Absolute Eos (auto) 0.01 10^3/uL L 10^3/uL (0.03-0.40) Absolute Basos (auto) 0.01 10^3/uL L 10^3/uL (0.02-0.10) Absolute Nucleated RBC 0.00 10^3/uL 10^3/uL (0-0.01) Immature Gran % 0.4 % % (0.0-1.1) Immature Gran # 0.03 10^3/uL 10^3/uL (0.00-0.10) RBC/WBC/PLT Morphology TNP Platelet Estimate TNP POC Sodium 131 mEq/L L mEq/L (135-145) Sodium 137 mEq/L mEq/L (135-145) POC Potassium 3.0 mEq/L L mEq/L (3.3-5.0) Potassium 2.5 mEq/L L* mEq/L (3.3-5.0) POC Chloride 87.0 mEq/L L mEq/L (97-110) Chloride 81 mEq/L L mEq/L (97-110) Carbon Dioxide 43 mEq/l H* mEq/l (22-31) POC Total CO2 > 40 mEq/L H* mEq/L (22-31) Anion Gap 13 mEq/L mEq/L (8-16) POC BUN 27 mg/dL H mg/dL (7-23) BUN 34 mg/dL H mg/dL (7-23) Creatinine 1.3 mg/dL mg/dL (0.7-1.3) POC Creatinine 1.6 mg/dL H mg/dL (0.7-1.3) Estimated GFR 55 Glucose 185 mg/dL H mg/dL (70-100) POC Glucose 195 mg/dL H mg/dL (70-100) POC Calcium 9.4 mg/dL mg/dL (8.5-10.4) Calcium 9.3 mg/dL mg/dL (8.5-10.4) Magnesium 1.8 mg/dL mg/dL (1.6-2.3) POC Total Bilirubin 1.0 mg/dL mg/dL (0.1-1.4) POC AST 59 IU/L IU/L (17-59) POC ALT 39 IU/L IU/L (21-72) POC Alk Phosphatase 69 IU/L IU/L (38-126) POC Total Protein 6.6 g/dL g/dL (6.3-8.2) POC Albumin 4.3 g/dL g/dL (3.5-5.0) Medications Given: Discontinued Medications Magnesium Sulfate (Magnesium Sulf 2 Gm (Premix)) 50 mls @ 50 mls/hr IV EDNOW ONE Stop: 08/15/18 02:05 Last Admin: 08/15/18 01:42 Dose: 50 mls Potassium Chloride (Potassium Cl 10 Meq (Premix)) 100 mls @ 100 mls/hr IV Q1H SHANEL Stop: 08/15/18 03:29 Last Admin: 08/15/18 01:41 Dose: 100 mls Potassium Chloride (Potassium Cl 10 Meq (Premix)) 100 mls @ 100 mls/hr IV ONCE ONE Stop: 08/15/18 04:29 Last Admin: 08/15/18 03:36 Dose: 100 mls Potassium Chloride (Klor-Con) 40 meq PO ONCE ONE Stop: 08/15/18 01:07 Last Admin: 08/15/18 01:42 Dose: 40 meq Potassium Chloride (Potassium Chloride Oral Liquid) 40 meq PO EDNOW ONE Stop: 08/15/18 03:31 Last Admin: 08/15/18 04:12 Dose: Not Given Point of Care Test Results: CBC CBC Collection Date 08/15/18 CBC Collection Time 02:33 Chemistry 08/15/18 01:02 POC Sodium 131 mEq/L L mEq/L (135-145) POC Potassium 3.0 mEq/L L mEq/L (3.3-5.0) POC Chloride 87.0 mEq/L L mEq/L (97-110) POC Total CO2 > 40 mEq/L H* mEq/L (22-31) POC BUN 27 mg/dL H mg/dL (7-23) POC Creatinine 1.6 mg/dL H mg/dL (0.7-1.3) POC Glucose 195 mg/dL H mg/dL (70-100) POC Calcium 9.4 mg/dL mg/dL (8.5-10.4) POC Total Bilirubin 1.0 mg/dL mg/dL (0.1-1.4) POC AST 59 IU/L IU/L (17-59) POC ALT 39 IU/L IU/L (21-72) POC Alk Phosphatase 69 IU/L IU/L (38-126) POC Total Protein 6.6 g/dL g/dL (6.3-8.2) POC Albumin 4.3 g/dL g/dL (3.5-5.0) Departure - Departure Disposition: [facility] Clinical Impression: Hypokalemia, Hx of AV replacement, Hx of Aortic Arch Aneuysm with repair , Dehydration Condition: Good Referrals: Patient,NotPresent [Primary Care Provider] - As per Instructions
[2018-08-15] MEDS ORDERED: POTASSIUM Cl (KCl) 100 ML IV ONE (03:30)
[2018-08-15] MEDS ORDERED: POTASSIUM CL 20 MEQ/15 ML UDCUP PO ONE (03:30)
[2018-08-15 04:17] VITALS: BP 118/74
[2018-08-15 23:23] LABS: CREATINE KINASE 88 IU/L (0-224)
--- NOTE | 2018-08-17 00:11 | CPEKG ---
Test Reason : OPEN Blood Pressure : / mmHG Vent. Rate : 092 BPM Atrial Rate : 093 BPM P-R Int : 160 ms QRS Dur : 111 ms QT Int : 470 ms P-R-T Axes : 063 011 074 degrees QTc Int : 582 ms Sinus rhythm Probable left atrial enlargement LVH with secondary repolarization abnormality Minimal ST elevation, inferior leads Prolonged QT interval Confirmed by Real Suarez ([id number]) on 08/17/2018 12:10:44 AM Referred By: Confirmed By:Real Suarez
== END 2018-08-15 04:14 | disposition short-term general hospital (02) ==
LOC: CED 00:28
DX: E83.51 Hypocalcemia (principal); Z95.2 Presence of prosthetic heart valve; Z86.79 Personal history of other diseases of the circulatory system; E86.0 Dehydration
CPT/HCPCS: 93005; 96365; 96366; 96368; 99285; J3475; J3480; 80053-PO